=== PATIENT | female | born 1980 | race Caucasian/White ===

== ENCOUNTER 2019-12-16 20:08 | Emergency (ER) | payer SELFPAY ==
[2019-12-16 20:11] VITALS: BP 133/79; PULSE 90; RESP 19; TEMP 36.9; O2SAT 97; BMI 34.7
--- NOTE | 2019-12-16 20:19 | ED_ITS ---
HPI - General Adult General: Chief complaint: General Medical Stated complaint: flu like symptoms Time Seen by Provider: 12/16/19 20:19 Source: patient Mode of arrival: ambulatory Limitations: no limitations History of Present Illness: HPI narrative: Patient comes in today with complaints of flulike syndrome. Patient reports illness starting yesterday. Patient complains of headache. Patient appears mildly unwell. Patient appears in mild pain. Associated symptoms: Reports headache(s) and malaise Review of Systems General: Reports: 10 or more systems reviewed and unremarkable except in HPI and below Const: Reports: fever, chills and malaise Neuro: Reports: headache PFSH ED PFSH: Statuses (acute, chronic, etc) shown below reflect problem list status as previously entered and may not be historically accurate Social History Smoking and tobacco status: never smoked Physical Exam Const: COMMON NORMALS: no apparent distress and oriented x3 GENERAL APPEARANCE: cooperative HENMT: COMMON NORMALS: normocephalic, external ears normal, EAC's normal and TM's normal bilaterally HEAD & SCALP: normal to inspection and normocephalic FACE & SINUS: normal facial exam NOSE: no nasal discharge GENERAL EAR: hearing not grossly impaired EXTERNAL EAR: Yes external ears normal EXTERNAL AUDITORY CANAL: EAC's normal TYMPANIC MEMBRANE: TM's normal bilaterally MOUTH: oral and palatal mucosa normal THROAT: posterior oropharynx abnormal erythema Eye: COMMON NORMALS: PERRL and EOMs intact bilaterally PUPIL: Yes PERRL Neck/C-Spine: COMMON NORMALS: full ROM and no lymphadenopathy Lymph: LYMPHATIC: no lymphedema noted Chest: COMMONS NORMALS: inspection of chest normal and palpation of chest normal Resp: COMMON NORMALS: normal respiratory effort and clear to auscultation bilaterally AUSCULTATION: clear to auscultation bilaterally Cardio: COMMON NORMALS: regular rate and regular rhythm RATE: regular rate RHYTHM: regular rhythm GI: COMMON NORMALS: normal to inspection, nondistended, normoactive bowel sounds and non-tender : COMMON NORMALS: Yes no CVA tenderness BLADDER/KIDNEY EXAM: Yes no CVA tenderness Back/Pelvis: COMMON NORMALS: no CVA tenderness and thoracic and lumbar spine normal to inspection Extremity: COMMON NORMALS: normal to inspection GENERAL: No edema Neuro: COMMON NORMALS: oriented x3, moves all extremities and no focal motor deficits Psych: COMMON NORMALS: mental status grossly normal and cooperative Skin: COMMON NORMALS: no rashes or lesions noted GENERAL SKIN EXAM: no rashes or lesions noted Course Vital Signs: Vital signs: Vital Signs Temperature 98.5 F 12/16/19 20:11 Pulse Rate 76 12/16/19 21:03 Respiratory Rate 18 12/16/19 21:03 Blood Pressure 118/68 12/16/19 21:03 Pulse Oximetry 98 12/16/19 21:03 MDM - General Adult MDM Narrative: Medical decision making narrative: Patient comes in today with complaints of flulike symptoms. Patient reports illness started yesterday. Patient has been exposed to the flu through her job. Exam notes posterior pharynx is erythematous, bilateral tympanic membranes are clear. Respirations are even lungs are clear to auscultation. Differential diagnosis includes influenza, pneumonia, viral syndrome, upper respiratory infection. Flu test was positive for type B. Reviewed exam with patient recommended treatment with Tamiflu and off work for 3 to 4 days while she recovers. Patient reports understanding agreed to plan. Lab Data: Labs: Lab Results 12/16/19 Range/Units 20:23 Influenza Type A A g Negative (Negative) POC Influenza B Ag Positive H (Negative) Discharge Plan Discharge Patient Disposition: Home, Self-Care Clinical Impression: Influenza Condition: Stable Prescriptions: New oseltamivir 75 mg capsule 75 mg PO BID 5 Days Qty: 10 RF: 0 Discharge Orders: Discharge Order (Routine); Ordered 12/16/19 Ordered By: Rowdy Flannery Referrals: Lina West MD [Family Provider] - Preeti Crawford FNP [Primary Care Provider] - Discharge Diet: Usual diet Discharge Activity: Increase activity as tolerated Patient Instructions: Influenza (ED) Activity Restrictions/Additional Instructions: drink plenty of fluids Acetaminophen and ibuprofen for pain and fever Activity as tolerated Follow-up with primary care in one week as needed Return to ER for worsening or persistent symptoms Stand Alone Forms: Work/School Release Discharge Date/Time: 12/16/19 21:04 Coding Level of Care Code ED Underwriting Account Representative for [employer] Exam Problem Focused
[2019-12-16 20:52] LABS: Influenza A by IFA Negative (Negative); Influenza B by IFA Positive (Negative)
[2019-12-16 21:03] VITALS: BP 118/68; PULSE 76; RESP 18; O2SAT 98
== END 2019-12-16 21:04 | disposition home or self-care (01) ==
PROVIDERS: Emergency Medicine; Emergency Provider Nurse Practitioner Family; Family Provider Family Medicine; PCP Nurse Practitioner
DX: J11.1 Influenza due to unidentified influenza virus with other respiratory manifestations (principal)
CPT/HCPCS: 87804; 99281; 99282

== ENCOUNTER 2020-05-07 12:08 | Emergency (ER) | payer SELFPAY ==
[2020-05-07 12:38] VITALS: BMI 33.9
[2020-05-07 12:40] VITALS: BP 136/78; PULSE 98; RESP 16; TEMP 36.9; O2SAT 97
--- NOTE | 2020-05-07 12:44 | XRR_ITS ---
PROCEDURE INFORMATION: Exam: XR Chest, 2 Views Exam date and time: 05/07/2020 12:45 PM Age: 39 years old Clinical indication: Cough; Additional info: Rule out pneumonia cough TECHNIQUE: Imaging protocol: XR of the chest Views: 2 views. COMPARISON: CR Chest 1 [place] [id number] 04/27/2017 10:45 AM FINDINGS: Lungs: Unremarkable. No consolidation. Pleural space: Unremarkable. No pleural effusion. No pneumothorax. Heart/Mediastinum: Unremarkable. No cardiomegaly. Bones/joints: Unremarkable. XR/XR chest 2V* [id number] IMPRESSION: No acute findings.
[2020-05-07 15:04] LABS: Basophils % 0.4 %; Eosinophils # 0.3 10^3/uL (0.0-0.8); Eosinophils % 2.8 %; Hematocrit 44.3 % (37.0-47.0); Hemoglobin 14.1 g/dL (11.5-15.3); Lymphocytes # 2.5 10^3/uL (0.8-4.8); Lymphocytes % 27.4 %; Mean Corpuscular HGB Conc 31.8 g/dL (30.0-36.0); Mean Corpuscular Hemoglobin 27.3 pg (28.0-34.0); Mean Corpuscular Volume 85.9 fL (81-99); Mean Platelet Volume 9.7 fL (7.4-10.4); Monocytes # 1.1 10^3/uL (0.2-0.9); Monocytes % 12.2 %; Neutrophils # 5.2 10^3/uL (1.8-7.7); Neutrophils % 56.9 %; Nucleated Red Blood Cells % 0 %; Platelet Count 396 10^3/cmm (130-400); Red Blood Count 5.16 10^6/uL (4.1-5.3); Red Cell Distribution Width 12.6 % (12.1-15.1); White Blood Count 9.1 10^3/uL (4.0-10.0)
[2020-05-07 15:25] LABS: Alanine Aminotransferase 15 U/L (0-33); Albumin Level 4.7 g/dL (3.5-5.2); Alkaline Phosphatase 99 IU/L (35-105); Aspartate Amino Transferase 15 U/L (0-32); Blood Urea Nitrogen 7 mg/dL (6-20); Calcium 9.8 mg/dL (8.5-10.5); Carbon Dioxide 25 mmol/L (22-29); Chloride 102 mmol/L (98-107); Globulin 3.2 g/dL (1.3-4.6); Glomerular Filtration Rate 111.9 mL/min (90-130); Glucose 89 mg/dL (65-115); Osmolality Calculated 281 mOsm/kg (285-295); Sodium 138 mmol/L (136-145); Total Bilirubin 0.2 mg/dL (0.15-1.2); Total Protein 7.9 g/dL (6.6-8.7)
--- NOTE | 2020-05-07 15:49 | ED_ITS ---
HPI - General Adult General: Chief complaint: General Medical Stated complaint: cough, sob Time Seen by Provider: 05/07/20 15:45 History of Present Illness: HPI narrative: Patient is a 39-year-old female comes to the ED with wheezing and shortness of breath. Patient has a past medical history of asthma. Patient says symptoms started on when she went into a building that had some cinnamon, which she is allergic to. Patient says she started having trouble breathing and went home and used her albuterol inhaler and it helped a little bit. She feels like it is not getting much better and she still has a cough, wheezing and chest tightness. Associated symptoms: Reports dyspnea; Deny chest pain, headache(s), nausea, rash, palpitations or vomiting Review of Systems Const: Denies: fever(s), chills or fatigue Eyes: Denies: change in vision or eye discomfort ENMT: Denies: throat pain, odynophagia, nasal discharge or nasal congestion Card: Denies: chest pain, palpitations, edema, swelling of feet/ankles, dyspnea on exertion or orthopnea Resp: Reports: dyspnea, non-productive cough and wheezing; Denies: productive cough GI: Denies: abdominal pain, nausea, vomiting, diarrhea, constipation or hematochezia : Denies: flank pain, dysuria or hematuria Musc: Denies: neck pain, back pain or extremity swelling Skin/Breast: Denies: rash or new lesions Neuro: Denies: headache(s), numbness in extremities or weakness in extremities PFS ED PFSH: Social History Smoking and tobacco status: never smoked Physical Exam Const: COMMON NORMALS: no acute distress, patient oriented x3 and alert GENERAL APPEARANCE: cooperative and comfortable HENMT: COMMON NORMALS: normocephalic HEAD & SCALP: normocephalic MOUTH: Normal oral and palatal mucosa present THROAT: posterior oropharynx normal and uvula midline Neck/C-Spine: COMMON NORMALS: supple GENERAL: Yes normal visual inspection Resp: COMMON NORMALS: normal respiratory effort, No retractions and No use of accessory muscles EFFORT & INSPECTION: Yes able to speak in complete sentences, No respiratory distress, No labored and Yes Actively coughing AUSCULTATION: wheezes expiratory wheezes (Left lung throughout) Cardio: COMMON NORMALS: regular rate, regular rhythm, S1 normal heart sound present, S2 normal heart sound present, No gallops present (Cardio), No clicks present (Cardio), No murmurs present (Cardio) and Peripheral pulses 2+ throughout RATE: regular rate RHYTHM: regular rhythm HEART SOUNDS: S1 normal heart sound present and S2 normal heart sound present PERIPHERAL PULSES: Peripheral pulses 2+ throughout GI: COMMON NORMALS: Normal to inspection, nondistended, normoactive bowel sounds present, Soft to palpation, non-tender and no masses PALPATION: Yes Soft to palpation : COMMON NORMALS: Yes no CVA tenderness BLADDER/KIDNEY EXAM: Yes no CVA tenderness Back/Pelvis: COMMON NORMALS: no CVA tenderness Extremity: COMMON NORMALS: normal to inspection and no pedal edema Neuro: COMMON NORMALS: patient oriented x3 and moves all extremities SENSOR IUM/ORIENTATION: Yes alert Skin: COMMON NORMALS: no rashes or lesions noted GENERAL SKIN EXAM: no rashes or lesions noted and dry skin Course Reevaluation(s): Reevaluation #1: After dose of Solu-Medrol and DuoNeb breathing treatment patient says she was feeling a lot better and she had no more wheezing upon auscultation of lungs. Vital Signs: Vital signs: Vital Signs Temperature 97.8 F 05/07/20 17:26 Pulse Rate 93 05/07/20 17:26 Respiratory Rate 16 05/07/20 17:26 Blood Pressure 138/83 05/07/20 17:26 Pulse Oximetry 98 05/07/20 17:26 MDM - General Adult MDM Narrative: Medical decision making narrative: Patient is a 39-year-old female with a history of asthma who comes to the ED with shortness of breath and wheezing. Patient says she was exposed to cinnamon which is an allergy for her on and she has had wheezing and shortness of breath since then. She has been using her albuterol inhaler and has not improved. In the ED patient had wheezing in the left lung upon auscultation, no crackles heard. CBC and CMP were unremarkable. Chest x-ray showed no acute findings. Patient was given a dose of Solu-Medrol and DuoNeb treatment. After DuoNeb treatment patient said she was feeling a lot better and her lungs were clear to auscultation bilaterally and no more wheezing was heard. Patient was discharged with a Solu-Medrol and albuterol inhaler prescription. She was told to follow-up with her PCP in 7 to 10 days for reevaluation. Return to ED if worsening symptoms. Patient agreed with and understood plan. Lab Data: Attestation: I reviewed the patient's lab results. Labs: Lab Results 05/07/20 05/07/20 Range/Units 14:35 14:35 WBC 9.1 (4.0-10.0) 10^3/ uL RBC 5.16 (4.1-5.3) 10^6/u L Hgb 14.1 (11.5-15.3) g/dL Hct 44.3 (37.0-47.0) % MCV 85.9 (81-99) fL MCH 27.3 L (28.0-34.0) pg MCHC 31.8 (30.0-36.0) g/dL RDW 12.6 (12.1-15.1) % Plt Count 396 (130-400) 10^3/c mm MPV 9.7 (7.4-10.4) fL Neut % (Auto) 56.9 % Lymph % (Auto) 27.4 % [place] % (Auto) 12.2 % Eos % (Auto) 2.8 % Baso % (Auto) 0.4 % Neut # (Auto) 5.2 (1.8-7.7) 10^3/u L Lymph # (Auto) 2.5 (0.8-4.8) 10^3/u L [place] # (Auto) 1.1 H (0.2-0.9) 10^3/u L Eos # (Auto) 0.3 (0.0-0.8) 10^3/u L Baso # (Auto) 0.0 (0.0-0.1) 10^3/u L Nucleated RBC % (a uto) 0 % Nucleated RBCs # 0.0 /100WBC Sodium 138 (136-145) mmol/L Potassium 4.0 (3.5-5.1) mmol/L Chloride 102 (98-107) mmol/L Carbon Dioxide 25 (22-29) mmol/L Anion Gap 15.0 (5-19) BUN 7 (6-20) mg/dL Creatinine 0.6 (0.5-0.9) mg/dL GFR Calculation 111.9 (90-130) mL/min Glucose 89 (65-115) mg/dL Calculated Osmolal ity 281 L (285-295) mOsm/k g Calcium 9.8 (8.5-10.5) mg/dL Total Bilirubin 0.2 (0.15-1.2) mg/dL AST 15 (0-32) U/L ALT 15 (0-33) U/L Alkaline Phosphata se 99 (35-105) IU/L Total Protein 7.9 (6.6-8.7) g/dL Albumin 4.7 (3.5-5.2) g/dL Globulin 3.2 (1.3-4.6) g/dL Imaging Data^: CXR: Attestation: I personally reviewed and interpreted this imaging study as fo llows: My impression: No acute findings pending final radiology report. Discharge Plan Discharge Patient Disposition: Home, Self-Care Clinical Impression: Asthma attack Qualifiers: Asthma severity: mild Asthma persistence: intermittent Qualified Code(s): J45.21 - Mild intermittent asthma with (acute) exacerbation Condition: Stable Prescriptions: New Medrol (Chas) 4 mg tablets,dose pack See Rx Instructions .ROUTE .COMPLEX Qty: 21 RF: 0 albuterol sulfate 90 mcg/actuation aerosol powdr breath activated 2 inh INHALATION Q4H PRN (Reason: shortness of breath or wheezing) Qty: 1 RF: 0 No Action cetirizine 10 mg Tablet 10 mg PO DAILY RF: 0 Discharge Orders: Discharge Order (Routine); Ordered 05/07/20 Ordered By: Dyllan Churchill Referrals: Preeti Crawford FNP [Primary Care Provider] - Discharge Diet: Regular Discharge Activity: Resume usual activity Patient Instructions: Asthma Exacerbation - Adult Activity Restrictions/Additional Instructions: Follow-up with medical provider as directed in 7-10 days. Take medications as prescribed. Return to the ER or your medical provider if condition worsens. Please read and understand discharge instructions. If any questions, please ask. Discharge Date/Time: 05/07/20 17:27 Coding Level of Care Code ED Manager Of Human Resources for [employer] Exam Comprehensive
[2020-05-07 16:45] VITALS: PULSE 83; RESP 18; O2SAT 98
[2020-05-07] MEDS: ipratropium-albuterol 3 mL Neb INHALATION (16:50)
[2020-05-07 16:57] VITALS: PULSE 91
[2020-05-07 17:26] VITALS: BP 138/83; PULSE 93; RESP 16; TEMP 36.6; O2SAT 98
== END 2020-05-07 17:27 | disposition home or self-care (01) ==
PROVIDERS: Emergency Medicine; Emergency Provider Physician Assistant; PCP Nurse Practitioner
DX: J45.21 Mild intermittent asthma with (acute) exacerbation (principal)
CPT/HCPCS: 12345; 36415; 71046; 80053; 85025; 94640; 96372; 99282; 99283; J2930

== ENCOUNTER → 2020-11-24 10:42 | Outpatient (BNVA) | payer OTHER, SELFPAY | PROVIDERS: PCP Nurse Practitioner; Visit Provider Nurse Practitioner Family | DX: Z20.822 Contact with and (suspected) exposure to COVID-19 (principal); Z11.52 Encounter for screening for COVID-19 | CPT/HCPCS: 87426; 87635 ==

== ENCOUNTER → 2020-11-25 15:46 | Outpatient (BNVA) | payer OTHER, SELFPAY | PROVIDERS: PCP Nurse Practitioner; Visit Provider Nurse Practitioner Family | DX: J06.9 Acute upper respiratory infection, unspecified (principal) | CPT/HCPCS: 87400 ==

== ENCOUNTER → 2020-11-26 11:53 | Outpatient (BNVA) | payer OTHER, SELFPAY | PROVIDERS: PCP Nurse Practitioner; Visit Provider Nurse Practitioner Family | DX: J06.9 Acute upper respiratory infection, unspecified (principal); J98.8 Other specified respiratory disorders; B97.89 Other viral agents as the cause of diseases classified elsewhere; Z20.828 Contact with and (suspected) exposure to other viral communicable diseases | CPT/HCPCS: 87635 ==

== ENCOUNTER 2020-12-31 17:24 | Emergency (ER) | payer OTHER, SELFPAY ==
[2020-12-31 17:50] VITALS: BP 147/88; PULSE 88; RESP 18; TEMP 36.6; O2SAT 98; BMI 38.2
--- NOTE | 2020-12-31 18:05 | CTR_ITS ---
PROCEDURE INFORMATION: Exam: CT Lumbar Spine Without Contrast Exam date and time: 12/31/2020 6:45 PM Age: 40 years old Clinical indication: Injury or trauma; Blunt trauma (contusions or hematomas); Patient HX: C/O worsening lbp since fall on ice 10 days ago TECHNIQUE: Imaging protocol: Computed tomography images of the lumbar spine without contrast. Radiation optimization: All CT scans at this facility use at least one of these dose optimization techniques: automated exposure control; mA and/or kV adjustment per patient size (includes targeted exams where dose is matched to clinical indication); or iterative reconstruction. COMPARISON: [place] [id number] 03/01/2015 1:05 AM RADIATION DOSE METRICS: Total DLP (mGy-cm): 2638.7 FINDINGS: Vertebrae: No acute fracture. Normal alignment. L1-L2: No significant disc protrusion. No severe spinal canal stenosis. No significant neural foraminal narrowing. L2-L3: No significant disc protrusion. No spinal canal stenosis. No neural foraminal narrowing. L3-L4: No significant disc protrusion. No severe spinal canal stenosis. No significant neural foraminal narrowing. L4-L5: No significant disc protrusion. No severe spinal canal stenosis. No significant neural foraminal narrowing. L5-S1: No significant disc protrusion. No severe spinal canal stenosis. No significant neural foraminal narrowing. Gallbladder and bile ducts: Cholecystectomy. Reproductive: Partial visualization of intrauterine device. Soft tissues: Paraspinal soft tissues are unremarkable. CT/CT lumbar spine wo con* [id number] IMPRESSION: Unremarkable lumbar spine. No acute fracture. No change from comparison 03/01/2015. Radiation Dose CTDIVOL = (mGy): DLP = 2638.7 (mGy-cm)
[2020-12-31 19:48] VITALS: RESP 18
[2020-12-31] MEDS: oxyCODONE-APAP 5-325 mg Tablet 2 TAB PO (19:48)
[2020-12-31 20:59] VITALS: PULSE 75; RESP 16; O2SAT 97
--- NOTE | 2021-01-01 02:10 | W.ED.BACK ---
HPI - Back Pain/Injury General: Chief Complaint: Back Pain/Injury Stated Complaint: FALL, SEVERE LOWER BACK PAIN Time Seen by Provider: 12/31/20 18:45 History of Present Illness: HPI Narrative: 40-year-old female who fell several days ago on the ice. She states that she fell flat of her back. Her pain has been increasing since that time. She is taken ibuprofen and Tylenol as well as lidocaine patches at home without any improvement. She notes radicular pain down to her knee from the right side. No numbness or tingling. No loss of bowel or bladder function. MD elicited complaint: back pain and back injury Onset (ago): day(s) Timing: constant and progressively worsening Severity: severe Similar Symptoms Previously: No Quality: sharp, stabbing and spasming Location: lumbar spine and sacrum Radiation: right upper leg Exacerbating factors: movement Relieving factors: none Context: fall Associated symptoms: Reports difficulty walking and nausea; Deny abdominal pain, dysuria, fatigue, fecal incontinence, fever(s), hematuria, urinary frequency or urinary urgency Treatments prior to arrival: cold therapy, heat therapy, NSAIDS, acetaminophen and other medications Review of Systems Const: Denies: fever(s) or fatigue GI: Reports: nausea; Denies: abdominal pain or fecal incontinence : Denies: dysuria, urinary urgency or hematuria Neuro: Reports: difficulty walking [facility] ED PFSH: Social History (Updated 11/25/20 @ 15:29 by JAYRO Odonnell) Smoking and tobacco status: never smoked Alcohol intake: never Physical Exam Const: COMMON NORMALS: patient oriented x3, alert and well nourished Neck/C-Spine: COMMON NORMALS: no JVD Resp: COMMON NORMALS: normal respiratory effort, No use of accessory muscles and clear to auscultation bilaterally AUSCULTATION: clear to auscultation bilaterally Cardio: COMMON NORMALS: no JVD, regular rate, regular rhythm and No murmurs present (Cardio) RATE: regular rate RHYTHM: regular rhythm GI: COMMON NORMALS: Normal to inspection, nondistended, normoactive bowel sounds present, Soft to palpation and non-tender PALPATION: Yes Soft to palpation Back/Pelvis: OTHER: Exam of the lumbar spine reveals significant tenderness over the L5 region. There is pain on straight leg raise testing that radiates pain to the knee on the right, but not below. Pelvis appears stable. Strength testing is good. Neuro: COMMON NORMALS: patient oriented x3 SENSORIUM/ORIENTATION: Yes alert Course Vital Signs: Vital signs: Vital Signs Temperature 97.9 F 12/31/20 17:50 Pulse Rate 75 12/31/20 20:59 Respiratory Rate 16 12/31/20 20:59 Blood Pressure 147/88 12/31/20 17:50 Pulse Oximetry 97 12/31/20 20:59 MDM - Back Pain/Injury MDM Narrative: Medical decision making narrative: CT of the lumbosacral spine is normal. There is no asymmetry of the SI joint by CT. Discharge Plan Discharge Patient Disposition: Home Clinical Impression: Strain of lumbar region Qualifiers: Encounter type: initial encounter Qualified Code(s): S39.012A - Strain of muscle, fascia and tendon of lower back, initial encounter Condition: Stable Prescriptions: New Percocet 7.5-325 mg tablet 1 tab PO Q6H PRN (Reason: pain) Qty: 10 RF: 0 Medrol (Chas) 4 mg tablets,dose pack See Rx Instructions .ROUTE .COMPLEX Qty: 21 RF: 0 No Action hydroxyzine HCl 25 mg tablet 25 mg PO BID PRNRF: 0 albuterol sulfate 2.5 mg /3 mL (0.083 %) solution for nebulization 2.5 mg INHALATION Q4H PRN (Reason: shortness of breath or wheezing) Qty: 90 RF: 0 citalopram 10 mg tablet 10 mg PO DAILY RF: 0 prednisone 20 mg tablet 20 mg PO DAILY 5 Days Qty: 5 RF: 0 cetirizine 10 mg Tablet 10 mg PO DAILY RF: 0 albuterol sulfate 90 mcg/actuation aerosol powdr breath activated 2 inh INHALATION Q4H PRN (Reason: shortness of breath or wheezing) Qty: 1 RF: 0 Discharge Orders: Discharge ED (Routine); Ordered 12/31/20 Ordered By: Dick Bay Discharge Diet: Usual diet Discharge Activity: Limit activity as instructed Patient Instructions: Back Pain (ED), Opioid Safety Activity Restrictions/Additional Instructions: See your doctor early next week. You may require more outpatient services such as physical therapy. Medication as directed. Coding Level of Care Code ED [employer] Worker for Maria Ines Hopper
== END 2020-12-31 21:00 | disposition home or self-care (01) ==
PROVIDERS: Emergency Provider Emergency Medicine
DX: S39.012A Strain of muscle, fascia and tendon of lower back, initial encounter (principal); W00.9XXA Unspecified fall due to ice and snow, initial encounter
CPT/HCPCS: 72131; 99283

== ENCOUNTER → 2021-06-28 09:59 | Outpatient (BNVA) | payer OTHER, SELFPAY | PROVIDERS: Visit Provider Nurse Practitioner Women's Health | DX: Z30.431 Encounter for routine checking of intrauterine contraceptive device (principal) | CPT/HCPCS: 76830 ==

== ENCOUNTER → 2021-08-04 09:15 | Outpatient (BNVA) | payer OTHER, SELFPAY | PROVIDERS: Visit Provider Obstetrics & Gynecology | DX: D25.0 Submucous leiomyoma of uterus (principal); Z20.822 Contact with and (suspected) exposure to COVID-19 | CPT/HCPCS: 87635 ==

== ENCOUNTER 2021-08-09 12:34 | Observation (INO) | payer OTHER, SELFPAY ==
[2021-08-08 12:14] VITALS: BMI 37.1
--- NOTE | 2021-08-08 13:08 | ANES.PREANE2 ---
Pre-Anesthetic Assessment Pre-Anesthetic Assessment: Height/Weight: Height 1.68 m Weight 104.326 kg Preop Diagnosis: Uterine fibroid, chronic pelvic pain Proposed Procedure: Operation Date: 08/09/21 10:45 Proposed Procedures p Total Vaginal Hysterectomy 42626 D25.9(Not Applicable) - Apollo Enriquez MD Was Beta Lopez taken within 24 hours: N/A Was Clonidine taken within 24 hours: N/A Social: Social History: No alcohol and No tobacco Exam: Pre-Anes Outpt Exam: alert, oriented x 3 and clear to auscultation bilaterally Airway: Submandibular: WNL Cervical ROM: WNL MP: 1 Dentition: Full History/ROS: No significant complaints Pulmonary: Pulmonary: Asthma (no recent problems) CV/HEM: CV/HEM: None reported : : None reported Hepatic: Hepatic: None reported GI: GI: None reported Metabolic: Metabolic: None reported Musc/skel: Musc/skel: None reported Neuropsych: Neuropsych: None reported Anesthetic Plan: ASA status: 2 Anesthesia: General Risk of > 500 ml blood loss (7ml/kg in children): No PFSH Anesthesia PFSH: Medical History Asthma Diabetes HTN (hypertension), benign No pertinent past medical history neghx: thyroid,dvt/pe PCP: Modesta Whipple Surgical History Hx of cholecystectomy (~2010) Family History Grandfather Heart disease Paternal Diabetes Paternal Grandmother Heart disease Paternal Diabetes Paternal Family/Other Heart disease Paternal Uncle Colon cancer Maternal Great Grandmother--dx age unknown Paternal Uncle--dx age unknown Diabetes Paternal side in general Hypercholesteremia Paternal side in general Father Diabetes Hypertension Sister Diabetes Denies family history of Ovarian cancer Breast cancer Uterine cancer Thyroid disease Stroke Data Anesthesia Cardiac Studies: No Data to Display
[2021-08-08 13:09] LABS: Add Urine Microscopic? NO; Charge for UA Resulting for Rev
[2021-08-08 13:12] LABS: Basophils % 0.5 %; Eosinophils # 0.3 10^3/uL (0.0-0.8); Hemoglobin 13.1 g/dL (11.5-15.3); Lymphocytes # 2.8 10^3/uL (0.8-4.8); Lymphocytes % 32.2 %; Mean Corpuscular HGB Conc 32.8 g/dL (30.0-36.0); Mean Corpuscular Hemoglobin 27.7 pg (28.0-34.0); Mean Corpuscular Volume 84.6 fl (81-99); Monocytes # 0.7 10^3/uL (0.2-0.9); Monocytes % 7.9 %; Neutrophils # 4.86 10^3/uL (1.8-7.7); Neutrophils % 56.1 %; Nucleated Red Blood Cells % 0 %; Platelet Count 394 10^3/cmm (130-400); Red Blood Count 4.73 10^6/uL (4.1-5.3); Red Cell Distribution Width 12.7 % (12.1-15.1); White Blood Count 8.7 10^3/uL (4.0-10.0)
[2021-08-08 13:18] LABS: Bilirubin Urine Neg (Negative); Blood Urine Neg (Negative); Glucose Urine UA Norm (Normal); Ketones Urine Negative (Negative); Leukocyte Esterase Urine Negative (Negative); Nitrate Urine Negative (Negative); Protein Urine Neg (Negative); Specific Gravity, Urine 1.005 (1.005-1.030); Urine Appearance Clear (CLEAR); Urine Color Straw (Yellow); Urobilinogen Urine Norm (Negative); pH Urine 7 (5-7)
[2021-08-08 13:19] LABS: OR HCG Qualitative Urine Negative (Negative)
[2021-08-08 13:34] LABS: Alanine Aminotransferase 20 U/L (0-33); Albumin Level 4.3 g/dL (3.5-5.2); Alkaline Phosphatase 69 IU/L (35-105); Anion Gap 14.2 (5-19); Aspartate Amino Transferase 17 U/L (0-32); Blood Urea Nitrogen 9 mg/dL (6-20); Calcium 9.3 mg/dL (8.5-10.5); Carbon Dioxide 24 mmol/L (22-29); Chloride 99 mmol/L (98-107); Creatinine Clr Calc Pharmacy 152.1154; Globulin 2.4 g/dL (1.3-4.6); Glomerular Filtration Rate 110.7 mL/min (90-130); Glucose 146 mg/dL (65-115); Osmolality Calculated 279 mOsm/kg (285-295); Potassium 3.2 mmol/L (3.5-5.1); Sodium 134 mmol/L (136-145); Total Bilirubin 0.3 mg/dL (0.15-1.2); Total Protein 6.7 g/dL (6.6-8.7)
[2021-08-09] VITALS (17 sets, daily range): BP systolic 99–139; BP diastolic 61–84; PULSE 55–90; RESP 12–22; TEMP 36.3–37.1; O2SAT 96–100; BMI 37.4
[2021-08-09] MEDS: scopolamine 1.5 Patch 1 PATCH TRANSDERMA (09:32)
[2021-08-09] MEDS: sodium chloride 0.9% 500 ML IV (09:35)
[2021-08-09] MEDS: ondansetron 2 mg/ML SDV 2 mL 4 MG IVP ×2 (09:40→12:55)
[2021-08-09] MEDS: diphenhydrAMINE 50 mg/mL SDV 1mL 12.5 MG IVP (09:41)
--- NOTE | 2021-08-09 09:57 | ANES.PAUD2 ---
Pre-Anesthetic Update Pre-Anesthetic Assessment: Date of Surgery/Procedure: 08/09/21 Preop Diagnosis: Uterine fibroid, chronic pelvic pain Proposed Procedure: Operation Date: 08/09/21 10:20 Proposed Procedures p Total Vaginal Hysterectomy 57426 D25.9(Not Applicable) - Apollo Enriquez MD Any changes to Pre-Anesthetic Assessment?: No Last Intake: Intake Last Liquid Date 08/08/21 Last Liquid Time 19:00 Last Solid Date 08/08/21 Last Solid Time 22:00 Labs Last 48hrs: Laboratory Results - last 48 hr 08/08/21 08/08/21 08/08/21 12:25 12:25 12:25 WBC 8.7 RBC 4.73 Hgb 13.1 Hct 40.0 MCV 84.6 MCH 27.7 L MCHC 32.8 RDW 12.7 Plt Count 394 MPV 10.0 Neut % (Auto) 56.1 Lymph % (Auto) 32.2 [place] % (Auto) 7.9 Eos % (Auto) 3.0 Baso % (Auto) 0.5 Neut # (Auto) 4.86 Lymph # (Auto) 2.8 [place] # (Auto) 0.7 Eos # (Auto) 0.3 Baso # (Auto) 0.0 Nucleated RBC % (a uto) 0 Nucleated RBCs # 0.0 Sodium Potassium Chloride Carbon Dioxide Anion Gap BUN Creatinine GFR Calculation Glucose Calculated Osmolal ity Calcium Total Bilirubin AST ALT Alkaline Phosphata se Total Protein Albumin Globulin Urine Color Straw Urine Appearance Clear Urine pH 7 Ur Specific Gravit y 1.005 Urine Protein Neg Urine Glucose (UA) Norm Urine Ketones Negative Urine Blood Neg Urine Nitrate Negative Urine Bilirubin Neg Urine Urobilinogen Norm Ur Leukocyte Vandana ase Negative Urine HCG, Qual Negative Blood Type Rho(D) Type Antibody Screen 08/08/21 08/08/21 12:25 12:25 WBC RBC Hgb Hct MCV MCH MCHC RDW Plt Count MPV Neut % (Auto) Lymph % (Auto) [place] % (Auto) Eos % (Auto) Baso % (Auto) Neut # (Auto) Lymph # (Auto) [place] # (Auto) Eos # (Auto) Baso # (Auto) Nucleated RBC % (a uto) Nucleated RBCs # Sodium 134 L Potassium 3.2 L Chloride 99 Carbon Dioxide 24 Anion Gap 14.2 BUN 9 Creatinine 0.6 GFR Calculation 110.7 Glucose 146 H Calculated Osmolal ity 279 L Calcium 9.3 Total Bilirubin 0.3 AST 17 ALT 20 Alkaline Phosphata se 69 Total Protein 6.7 Albumin 4.3 Globulin 2.4 Urine Color Urine Appearance Urine pH Ur Specific Gravit y Urine Protein Urine Glucose (UA) Urine Ketones Urine Blood Urine Nitrate Urine Bilirubin Urine Urobilinogen Ur Leukocyte Vandana ase Urine HCG, Qual Blood Type O Positive Rho(D) Type Positive Antibody Screen Negative Vitals: Temperature 98.7 F 08/09/21 09:16 Temperature Source Temporal Artery S can 08/09/21 09:16 Pulse Rate 90 08/09/21 09:16 Respiratory Rate 18 08/09/21 09:16 Blood Pressure 139/84 08/09/21 09:16 Blood Pressure Karen n 102 08/09/21 09:16 Pulse Oximetry 96 08/09/21 09:16 Oxygen Delivery Me thod 08/09/21 09:16 Exam: Pre-Anes Outpt Exam: alert, oriented x 3, clear to auscultation bilaterally and regular rate & rhythm Cardiac Studies: No Data to Display
[2021-08-09] MEDS: sodium chloride 0.9% 1,000 ML 30 ML IV (10:04)
--- NOTE | 2021-08-09 10:13 | W.PM.OPSUD ---
Surgery/Procedure H&P Update DATE OF PROCEDURE: August 09, 2021 DATE H&P PERFORMED: 08/07/21 H&P UPDATE INFORMATION: I have reviewed H&P completed within last 30 days, I have examined patient prior to procedure and No changes to prior documentation PREOP DIAGNOSIS: Uterine fibroid, chronic pelvic pain PLANNED PROCEDURE: Operation Date: 08/09/21 10:20 Proposed Procedures p Total Vaginal Hysterectomy 26179 D25.9(Not Applicable) - Apollo Enriquez MD
[2021-08-09] MEDS: ceFOXitin 2,000 MG in sodium chloride 0.9% (plus) 50 ML 100 MG IV (10:18)
--- NOTE | 2021-08-09 12:29 | PM.OP ---
Operative Report Date of procedure: August 09, 2021 Pre-op Diagnosis: Uterine fibroid, chronic pelvic pain Post-op diagnosis: same Post-op Findings: irregular shape, large uterus, Procedure Done: Total vaginal hysterectomy Specimens removed/disposition: Uterus Pathology: Morcellated uterus Surgeon: Apollo Enriquez MD Anesthesia: General Estimated blood loss (mL): 500 IV fluids (mL): 1,000 Urine output (mL): 150 Complications: Uterus had to be morcellated, Condition: stable Disposition: PACU Procedure: After informed consent and risks, benefits, indications and alternatives reviewed with the patient was taken to the operating room. The patient was placed in dorsal lithotomy position prepped, and draped in the usual sterile fashion. The pre-procedure timeout verifying the correct patient, procedure, site and side, could not requirements was performed and acknowledge by the OR team. A Moss catheter was placed. A Bookwalter vaginal retractor was placed into the vagina in usual manner visualize the cervix. Cervix was grasped with a single tooth tenaculum and circumferentially infiltrated with 2% lidocaine with epinephrine. Then cervix was circumferentially incised with bovie and the bladder was dissected off the pubovesical cervical fascia anteriorly with a sponge stick and Metzenbaum scissors. The anterior peritoneal reflection was identified and the anterior cul-de-sac was entered sharply with Metzenbaum scissors. The same procedure was performed posteriorly and a posterior colpotomy was made through the posterior cul-de-sac space without difficulty and the posterior blade of the Bookwalter vaginal retractor was advanced posteriorly into the cul-de-sac. At this time, the left and right uterosacral ligaments were isolated and ligated with 0 Vicryl. The Enseal device was placed over the uterosacral ligaments on either side and was then used in a serial fashion up through the cardinal ligaments bilaterally cross-clamped, cut, and sealed with the Enseal device. Finally, the uterine arteries were cross-clamped, cut, sealed and ligated with the Enseal device. Hemostasis was assured. The broad ligaments were then serially clamped, sealed and cut with the Enseal device on both sides. The uterus was so enlarged that we will not think to the vaginal canal and he had to be manually morcellated. Once all the large fibroid had been excised with morcellation. Then both cornua were clamped, sealed and cut with the Enseal device. Excellent hemostasis was visualized. Then the pedicles were then suture ligated with excellent hemostasis. The uterus was submitted for pathologic evaluation. No other abnormalities were noted in the pelvic cavity. The peritoneum was then closed in a pursestring fashion with 0 Vicryl suture. The vaginal cuff angles were closed with [id number] #0 Vicryl suture on both sides and transfixed with the ipsilateral cardinal and uterosacral ligaments. The remainder of the vaginal cuff was closed with #0 Vicryl in a running locked fashion. At this time, instruments were removed from the vagina at hemostasis assured. Moss catheter was noted yielding clear ant urine. The patient was taken out of dorsal lithotomy position and awakened from the general anesthesia. The patient tolerated the procedure well and was taken to the PACU recovery room in a stable condition. Sponge, lap, needle and instruments counts were correct x3.
[2021-08-09] MEDS: fentaNYL 50 mcg/mL INJ 2mL IVP ×2 (12:55→13:00)
[2021-08-09] MEDS: HYDROcodone-acetaminophen 5-325 mg Tablet PO (14:20)
[2021-08-09] MEDS: ketorolac 30 mg/mL INJ IVP ×2 (14:21→21:36)
[2021-08-09] MEDS: dextrose 5%-lactated ringers 1,000 ML 125 ML IV ×2 (14:21→23:59)
--- NOTE | 2021-08-09 15:19 | ANE.PACU2 ---
Inpatient post-anesthesia follow up: Airway intact: Yes Vital signs: Temperature 97.9 F Pulse Rate 76 Respiratory Rate 17 Blood Pressure 120/76 Pulse Oximetry 99 Oxygen Delivery Me thod Room Air Oxygen Flow Rate 8 Fraction of Inspir ed Oxygen Hydration adequate: Yes Nausea and vomiting: No Pain level: 3 Mental status: Baseline
[2021-08-09] MEDS: docusate sodium 100 mg Capsule PO (18:03)
--- NOTE | 2021-08-09 21:12 | PC.NURSE ---
Patient ambulated 325'.
[2021-08-10] MEDS: acetaminophen 325 mg Tablet 650 MG PO ×2 (00:18→06:18)
[2021-08-10] MEDS: hyDROXYzine 25 mg Capsule PO (00:19)
[2021-08-10] MEDS: HYDROcodone-acetaminophen 5-325 mg Tablet PO ×2 (00:19→06:18)
[2021-08-10 00:28] VITALS: BP 115/69; PULSE 89; RESP 18; TEMP 37.1; O2SAT 95
[2021-08-10] MEDS: ketorolac 30 mg/mL INJ IVP ×2 (02:30→08:17)
[2021-08-10 04:00] VITALS: BP 99/55; PULSE 64; RESP 18; TEMP 37.1; O2SAT 96
[2021-08-10] MEDS: dextrose 5%-lactated ringers 1,000 ML 125 ML IV (06:20)
[2021-08-10 07:27] LABS: Hematocrit 32.5 % (37.0-47.0); Hemoglobin 10.4 g/dL (11.5-15.3); Mean Corpuscular Hemoglobin 27.8 pg (28.0-34.0); Mean Corpuscular Volume 86.9 fl (81-99); Mean Platelet Volume 9.8 fL (7.4-10.4); Platelet Count 300 10^3/cmm (130-400); Red Blood Count 3.74 10^6/uL (4.1-5.3); Red Cell Distribution Width 12.8 % (12.1-15.1); White Blood Count 12.5 10^3/uL (4.0-10.0)
[2021-08-10 07:48] VITALS: BP 99/64; PULSE 69; RESP 18; TEMP 36.9; O2SAT 95
--- NOTE | 2021-08-10 08:00 | P.DS_ITS ---
Discharge Providers CAT SCANNER OPERATOR Date of Admission: 08/09/21 12:34 Date of Discharge: 08/10/21 Attending Provider at Admission: Apollo Enriquez MD Attending Provider at Discharge: Apollo Enriquez MD Primary Care Provider: SVETA Simons Diagnoses at Discharge Discharge Diagnosis (1) Status post vaginal hysterectomy: Status: Acute (2) Postoperative anemia due to acute blood loss: Status: Acute Reason for Visit Reason for Visit: total vaginal hystrecetomy Hospital Course Hospital Course Mrs. Cartwright 41-year-old female diagnosed with a large fibroid uterus and chronic pelvic pain. She was admitted for planned total vaginal hysterectomy. The total vaginal hysterectomy was performed complicated by uterine size have to be morcellated and subsequently the patient bleeding more than expected. However postop observation has been uneventful. She is post TVH postoperative day 1 afebrile and hemodynamically stable. Tolerating diet well. Ambulating without difficulty. Pain under control. Physical Exam Narrative: EXAM NARRATIVE: GA: Alert and oriented ?3. HEENT: WNL. Heart: Regular rate and rhythm. Lungs: Clear to auscultation bilaterally. Abdomen: Bowel sounds present, nontender. FAGOT MAKER: No bleeding. Extremities: No edema, no cyanosis, no calves pain. Urinary Catheter Management^: Moss: Cath Placed During This Visit: yes Urinary Catheter Date of Insertion: 08/09/21 Urinary Catheter Time of Insertion: 10:58 Discharge Data Data Completed and Pending: Pending at discharge Category Date Time Status Pathology: Surgic al [PTH] Routine Pth 08/09/21 12:33 Received Labs from last 24 hours 08/10/21 07:17 WBC 12.5 H RBC 3.74 L Hgb 10.4 L Hct 32.5 L MCV 86.9 MCH 27.8 L MCHC 32.0 RDW 12.8 Plt Count 300 MPV 9.8 Vitals: Last Vital Signs Temp 98.4 F 08/10/21 07:48 Pulse 69 08/10/21 07:48 Resp 18 08/10/21 07:48 BP 99/64 08/10/21 07:48 Pulse Ox 95 08/10/21 07:48 Discharge Plan Discharge Patient Disposition: Home Condition: Stable Prescriptions: New acetaminophen 325 mg capsule 325 mg PO Q4H PRN (Reason: fever or postoperative pain) Qty: 60 RF: 0 ibuprofen 800 mg tablet 800 mg PO TID PRN (Reason: pain) Qty: 60 RF: 0 hydrocodone-acetaminophen 5-325 mg tablet 1 tab PO Q4H PRN (Reason: pain) Qty: 30 RF: 0 Colace 100 mg capsule 100 mg PO BID Qty: 60 RF: 0 Iron (ferrous sulfate) 325 mg (65 mg iron) tablet 325 mg PO BID Qty: 60 RF: 0 Continued hydroxyzine HCl 25 mg tablet 25 mg PO BID PRN (Reason: Pain) RF: 0 albuterol sulfate 2.5 mg /3 mL (0.083 %) solution for nebulization 2.5 mg INHALATION Q4H PRN (Reason: shortness of breath or wheezing) Qty: 90 RF: 0 acetaminophen [Tylenol] 325 mg capsule 325 mg PO QID PRN (Reason: Pain) RF: 0 Mirena 20 mcg/24 hours (6 yrs) 52 mg intrauterine device intrauterine RF: 0 ibuprofen 800 mg tablet 800 mg PO TID PRN (Reason: pain) Qty: 60 RF: 0 epinephrine [EpiPen] 0.3 mg/0.3 mL auto-injector 0.3 mg IM ONCE PRN (Reason: Shortness Of Breath) RF: 0 albuterol sulfate 90 mcg/actuation aerosol powdr breath activated 2 inh INHALATION Q4H PRN (Reason: shortness of breath or wheezing) Qty: 1 RF: 0 Discharge Orders: Discharge Order (Routine); Ordered 08/10/21 Ordered By: Apollo Enriquez Discharge Diet: Regular Discharge Activity: Increase activity as tolerated Patient Instructions: Vaginal Hysterectomy (DC), Vaginal Hysterectomy (GEN), Opioid Safety Activity Restrictions/Additional Instructions: 1. Please call [facility] on next working day to make your post-operative appointment in 2 weeks. 2. Please stay home until you come back to the clinic on first post-operative check up. 3. Please follow instructions on your medications CAREFULLY. 4. If you have abdominal incision, do not cover it unless dressing is necessary because of drainage. OK to shower, but avoid bath. Leave steri-strips until they fall off. If they are still on one week after surgery, you may remove th em. 5. If you had vaginal surgery or vaginal repair, Dr. Enriquez may instruct you to take SITZ bath. 6. Yellow, blood tinged odorous vaginal discharge is usually normal after hysterectomy or vaginal surgeries. 7. No sexual intercourse, tampons, or douches until you are completely released from the post-operative care. 8. Avoid constipation by eating right and maybe using some Metamucil or Milk of Magnesia. 9. All prescription refills are given during the working hours. Please do no wait till it runs out. Call the clinic at [phone] before your medication runs out. The clinic will get in touch with your doctor to prescribe medications if necessary. 10. Please remain within 40 mile radius from our hospital because emergencies do happen now and then during the post-operative period. 11. If you have stairs at home, take one step at a time slowly and minimize the number of trips. It helps to stay in one floor for the next few days. No lifting except what you can lift by one hand until you are released from the post-operative care. 12. Driving is discouraged until you are well healed. It may be 3-4 weeks before you feel strong enough to drive. You should be able to turn and look through the rear window without pain and you should be able to push the brake pedal very hard without pain before you drive. No fast rules, but SAFETY should be your primary concern. DO NOT drive if you are on sedating medications such as narcotics. 13. Call the clinic (during working hours) to make urgent appointment or go to the Emergency room, if any of the following occurs: i. Vaginal bleeding becomes heavy, more than a period. ii. Incision becomes red and sore, or drains pus. iii. Your temperature is over 100.4 or you have chill. iv. IV site becomes red and swollen (a little ``knot?? is usually OK) v. Persistent nausea and vomiting vi. Persistent constipation or diarrhea vii. Rash or allergic reaction to medications. Discharge Attestations CAT SCANNER OPERATOR Time Spent in Discharge Care*: less than 30 min Coding Level of Care Code Acute Termite Helper for Maria Ines Hopper Diagnoses Status post vaginal hysterectomy Z90.710 Postoperative anemia due to acute blood loss D62
[2021-08-10] MEDS: docusate sodium 100 mg Capsule PO (08:17)
--- NOTE | 2021-08-10 08:25 | PC.NURSE ---
Pad Sanitary napkin changed this morning to see if any bleeding or discharge today.
--- NOTE | 2021-08-10 11:02 | PC.CHAP ---
Pastoral Care Encounter/Spiritual Assessment Type of Contact [] Declined rn psych visit [] Patient/Family/Request visit [] Outpatient visit [] Follow-up visit [] Physician referral [] Code/Alert [x] Routine visit [] Staff referral [] Actively dying [] Patient sleeping [] Family support [] [] Out of room [] Palliative care [] [x] Receiving care in room [] Pre-surgical visit [] Trauma [] Long length of stay [] ICU visit [] Other: Relational/Emotional Strength [x] Patient feels connected with others/family/visitors/staff [] Distress [] Loneliness/isolation [] Abandonment Spirituality of Patient [x] Person of Roberta [] Attends Pentecostalism of their Roberta [] Believes in Prayer [] Reads Bible or Yazdanism materials [] There are Spiritual issues to be addressed Fireworks Assembly Supervisor Interventions [x] Prayer [x] Active listening [x] Non-anxious presence [x] Spiritual/emotional support [] Crisis/trauma care [x] Spiritual counseling [] Bereavement support [] Provided bereavement packet [] Provided Bible/devotional materials [] Provided toy/stuffed animal, coloring book to patient or family member [] Provided Communion [] Anointing/Lee [] Salvation [x] Completed spiritual assessment [] Other: Impact on Illness or Injury [] Angry [] Fearful [] Anxious [] Often cries [] Exhaustion [] Unable to work [] Unable to attend zoroastrian [] Unable to walk/stand [] Unable to read [] Unable to drive [] Unable to eat/drink [] Unable to sleep [] Unable to be with family [] Patient intubated [] Other: Summary had hytrecetomy in son pain will has some recovery time has a good attitude and is going home Time spent with patient 10 mins
[2021-08-10 11:03] VITALS: BP 99/64; PULSE 69; RESP 18; TEMP 36.9; O2SAT 95
--- NOTE | 2021-08-11 08:44 | PC.SOCIAL ---
discharge follow up call made, spoke with patient. patient reports she is feeling ok is very sore. patient picked up all new medications from [facility]. patient is taking tylenol and motrin as needed. hasn't had to take a lot of hydrocodone, she is just taking for break through pain. pt is aware of follow up appointment with Dr. Gutierrez 08-25. discussed with patient if she had a temp over 100.4, increased pain, vomiting, or foul discharge to call dr. gutierrez's office or report to the ED. patient denies any questions or concerns.
== END 2021-08-10 10:45 | disposition home or self-care (01) ==
LOC: MEDSURG 12:35
PROVIDERS: Admitting Provider Obstetrics & Gynecology; PCP Registered Nurse; Visit Provider Obstetrics & Gynecology
PROC: (CPT 58290; principal; 2021-08-09 10:10)
DX: D25.9 Leiomyoma of uterus, unspecified (principal); R10.2 Pelvic and perineal pain; G89.29 Other chronic pain; E11.9 Type 2 diabetes mellitus without complications; I10 Essential (primary) hypertension; Z82.49 Family history of ischemic heart disease and other diseases of the circulatory system; Z83.3 Family history of diabetes mellitus
CPT/HCPCS: 58290; 36415; 80053; 81003; 84703; 85025; 85027; 86850; 86900; 88307; 96365; G0378; J0694; J1100; J1200; J1885; J2405; J2704; J2710; J3010; J3490; J7030; J7040; Q9968

== ENCOUNTER 2021-08-13 18:41 | Inpatient (IN) | payer OTHER, SELFPAY ==
[2021-08-13] VITALS (8 sets, daily range): BP systolic 136–176; BP diastolic 79–105; PULSE 78–84; RESP 16–20; TEMP 35.8–36.9; O2SAT 97–98
--- NOTE | 2021-08-13 19:08 | W.ED.ABDPA2 ---
HPI - Abdominal Pain General: Chief Complaint: Abdominal Pain Stated Complaint: donna B/P post op, N/V Time Seen by Provider: 08/13/21 19:03 Source: patient Mode of arrival: ambulatory Limitations: no limitations History of Present Illness: HPI narrative: 41-year-old female states that she had hysterectomy vaginally on Saturday and states she has had pain since then with it increasing over the last 2 days. States pain is very sharp in nature in her lower abdomen. She rates it an 8 out of 10 currently. States her hydrocodone helps but is not resolving the pain. She had some nausea with the pain. Associated Symptoms: Denies chills, dysuria and fever(s) Review of Systems Const: Denies: fever(s), chills, body aches or change in appetite Eyes: Denies: blurry vision or eye discomfort ENMT: Denies: throat pain or dental pain Card: Denies: chest pain Resp: Denies: dyspnea GI: Reports: abdominal pain : Denies: dysuria Musc: Denies: neck pain or back pain Skin/Breast: Denies: rash Neuro: Denies: headache(s) Psych: Denies: depression Nick/Lymph: Denies: easy bruising All/Imm: Denies: urticaria PFSH ED PFSH: Medical History Asthma Diabetes HTN (hypertension), benign No pertinent past medical history neghx: thyroid,dvt/pe PCP: Modesta Whipple Surgical History Hx of cholecystectomy (~2010) Family History Grandfather Heart disease Paternal Diabetes Paternal Grandmother Heart disease Paternal Diabetes Paternal Family/Other Heart disease Paternal Uncle Colon cancer Maternal Great Grandmother--dx age unknown Paternal Uncle--dx age unknown Diabetes Paternal side in general Hypercholesteremia Paternal side in general Father Diabetes Hypertension Sister Diabetes Denies family history of Ovarian cancer Breast cancer Uterine cancer Thyroid disease Stroke Physical Exam Const: COMMON NORMALS: no acute distress, patient oriented x3 and healthy appearing HENMT: COMMON NORMALS: normocephalic and atraumatic HEAD & SCALP: normocephalic and atraumatic Eye: COMMON NORMALS: Equal, round and reactive pupils present and EOMs intact bilaterally PUPIL: Yes Equal, round and reactive pupils present Neck/C-Spine: COMMON NORMALS: full ROM and supple Chest: COMMONS NORMALS: normal inspection of the chest and normal palpation of entire chest wall Resp: COMMON NORMALS: normal respiratory effort, No retractions, No use of accessory muscles and clear to auscultation bilaterally AUSCULTATION: clear to auscultation bilaterally Cardio: COMMON NORMALS: regular rate, regular rhythm and No murmurs present (Cardio) RATE: regular rate RHYTHM: regular rhythm GI: COMMON NORMALS: Normal to inspection, nondistended, normoactive bowel sounds present, Soft to palpation, non-tender and no masses PALPATION: Yes Soft to palpation Extremity: COMMON NORMALS: normal to inspection and full ROM Neuro: COMMON NORMALS: patient oriented x3, moves all extremities and no focal motor deficits Psych: COMMON NORMALS: mental status grossly normal, Normal thought process present and cooperative THOUGHT PROCESS: Normal thought process present Skin: COMMON NORMALS: no rashes or lesions noted and no wounds GENERAL SKIN EXAM: no rashes or lesions noted Course Vital Signs: Vital signs: Vital Signs Temperature 96.5 F L 08/13/21 18:56 Pulse Rate 79 08/13/21 18:56 Respiratory Rate 20 H 08/13/21 22:09 Blood Pressure 176/105 08/13/21 18:56 Pulse Oximetry 98 08/13/21 20:02 MDM - Abdominal Pain MDM Narrative: Medical decision making narrative: Patient presents here with abdominal pain after been given multiple dose of IV pain medicines due to the pain. CT scan showed a possible postoperative infection or a fistula. Her white count here is minimally elevated she is afebrile. I spoke to OB on-call will give IV antibiotics and admit. Lab Data: Labs: Lab Results 08/13/21 08/13/21 08/13/21 19:10 19:20 19:20 WBC 11.1 10^3/uL H 10 ^3/uL (4.0-10.0) RBC 4.33 10^6/uL 10^6 /uL (4.1-5.3) Hgb 12.1 g/dL g/dL (11.5-15.3) Hct 36.8 % L % (37.0-47.0) MCV 85.0 fl fl (81-99) MCH 27.9 pg L pg (28.0-34.0) MCHC 32.9 g/dL g/dL (30.0-36.0) RDW 12.7 % % (12.1-15.1) Plt Count 395 10^3/cmm 10^3 /cmm (130-400) MPV 10.1 fL fL (7.4-10.4) Neut % (Auto) 57.9 % % Lymph % (Auto) 29.8 % % Bosque % (Auto) 9.5 % % Eos % (Auto) 1.9 % % Baso % (Auto) 0.4 % % Neut # (Auto) 6.42 10^3/uL 10^3 /uL (1.8-7.7) Lymph # (Auto) 3.3 10^3/uL 10^3/ uL (0.8-4.8) Bosque # (Auto) 1.1 10^3/uL H 10^ 3/uL (0.2-0.9) Eos # (Auto) 0.2 10^3/uL 10^3/ uL (0.0-0.8) Baso # (Auto) 0.0 10^3/uL 10^3/ uL (0.0-0.1) Nucleated RBC % (a uto) 0 % % Nucleated RBCs # 0.0 /100WBC /100W BC Sodium 139 mmol/L mmol/L (136-145) Potassium 3.6 mmol/L mmol/L (3.5-5.1) Chloride 102 mmol/L mmol/L (98-107) Carbon Dioxide 25 mmol/L mmol/L (22-29) Anion Gap 15.6 (5-19) BUN 7 mg/dL mg/dL (6-20) Creatinine 0.6 mg/dL mg/dL (0.5-0.9) GFR Calculation 110.7 mL/min mL/m in (90-130) Glucose 89 mg/dL mg/dL (65-115) Calculated Osmolal ity 285 mOsm/kg mOsm/ kg (285-295) Lactic Acid Calcium 9.4 mg/dL mg/dL (8.5-10.5) Total Bilirubin 0.3 mg/dL mg/dL (0.15-1.2) AST 12 U/L U/L (0-32) ALT 16 U/L U/L (0-33) Alkaline Phosphata se 70 IU/L IU/L (35-105) Total Protein 6.9 g/dL g/dL (6.6-8.7) Albumin 4.1 g/dL g/dL (3.5-5.2) Globulin 2.8 g/dL g/dL (1.3-4.6) Lipase 11 U/L L U/L (13-60) Urine Color Yellow (Yellow) Urine Appearance Clear (CLEAR) Urine pH 7 (5-7) Ur Specific Gravit y 1.005 (1.005-1.030) Urine Protein Neg (Negative) Urine Glucose (UA) Norm (Normal) Urine Ketones Negative (Negative) Urine Blood 2+ H (Negative) Urine Nitrate Negative (Negative) Urine Bilirubin Neg (Negative) Urine Urobilinogen Norm mg/dL mg/dL (Negative) Ur Leukocyte Vandana ase Negative (Negative) Urine RBC 0-4 /hpf H /hpf (0-2) Urine WBC 0-4 /hpf H /hpf (0-5) Ur Squamous Epith Cells 0-4 /hpf H /hpf (0-5) Amorphous Sediment Not Reportable Urine Bacteria Trace /hpf /hpf (NONE) 08/13/21 21:45 WBC RBC Hgb Hct MCV MCH MCHC RDW Plt Count MPV Neut % (Auto) Lymph % (Auto) Bosque % (Auto) Eos % (Auto) Baso % (Auto) Neut # (Auto) Lymph # (Auto) Bosque # (Auto) Eos # (Auto) Baso # (Auto) Nucleated RBC % (a uto) Nucleated RBCs # Sodium Potassium Chloride Carbon Dioxide Anion Gap BUN Creatinine GFR Calculation Glucose Calculated Osmolal ity Lactic Acid 1.0 mmol/L mmol/L (0.5-2.2) Calcium Total Bilirubin AST ALT Alkaline Phosphata se Total Protein Albumin Globulin Lipase Urine Color Urine Appearance Urine pH Ur Specific Gravit y Urine Protein Urine Glucose (UA) Urine Ketones Urine Blood Urine Nitrate Urine Bilirubin Urine Urobilinogen Ur Leukocyte Vandana ase Urine RBC Urine WBC Ur Squamous Epith Cells Amorphous Sediment Urine Bacteria Imaging Data ^: CT Abd/Pel: Attestation: I personally reviewed and interpreted this imaging study as follows: Radiologist's impression: [address] [id number] [address] Scan Report Signed Patient: Keira Cartwright Unit #: [id number] : 1980 Age/Sex: 41 / F ADM Date: 08/13/21 Loc: ER Room/Bed: Attending Dr: Ordering Provider/Ordering MD: Sangeetha Garcia MD Date of Service: 08/13/21 Procedure(s): CT abdomen pelvis w con* [id number] Accession Number(s): [id number] Report Number: [id number] PROCEDURE INFORMATION: Exam: CT Abdomen And Pelvis With Contrast Exam date and time: 08/13/2021 7:07 PM Age: 41 years old Clinical indication: Abdominal pain; Localized; Prior surgery; Surgery date: 3-7 days post-operative; Patient HX: C/O worsening lower abd/pelvic pain 4 days S/P vag hyst; Additional info: Abd pain TECHNIQUE: Imaging protocol: Computed tomography of the abdomen and pelvis with contrast. Radiation optimization: All CT scans at this facility use at least one of these dose optimization techniques: automated exposure control; mA and/or kV adjustment per patient size (includes targeted exams where dose is matched to clinical indication); or iterative reconstruction. Contrast material: OMNI 300; Contrast volume: 95 ml; Contrast route: INTRAVENOUS (IV); COMPARISON: US transvaginal [id number] 06/28/2021 10:01 AM RADIATION DOSE METRICS: Total DLP (mGy-cm): 1713.19 FINDINGS: Heart: The heart is enlarged. Liver: Several hypodensities are noted in the liver and are too small to characterize. Gallbladder and bile ducts: There has been a cholecystectomy. There is no common bile duct dilation. Pancreas: The pancreas is normal. Spleen: Normal. No splenomegaly. Adrenal glands: Normal. No mass. Kidneys and ureters: There is no evidence of hydronephrosis. There is no evidence of renal calcifications. Stomach and bowel: There is an abnormal 4.3 x 4.4 by 4.0 cm at the top of the vaginal cuff containing air and what appears to be stool concerning for developing abscess and possibly fistulous communication with the adjacent sigmoid colon. On sagittal image 47, the sigmoid colon is lying immediately contiguous with this abnormality and there is a suggestion of a small tract or possible fistula between the bowel and the vaginal cuff. No diverticulitis. There is mild wall thickening of the colon immediately adjacent to the abnormal vaginal cuff. Appendix: A normal appendix is identified. A normal appendix is identified. Intraperitoneal space: No fluid collection or drainable abscess. Vasculature: Unremarkable.No abdominal aortic aneurysm. Lymph nodes: Unremarkable.No enlarged lymph nodes. Urinary bladder: There is nonspecific bladder wall thickening. This may be related to incomplete distention. Reproductive: There has been a hysterectomy. There are marked inflammatory changes in the pelvis with induration of the fat adjacent to the vaginal cuff. Bones/joints: Unremarkable. No acute fracture. Soft tissues: There is a fat-containing umbilical hernia. CT/CT abdomen pelvis w con* [id number] IMPRESSION: Abnormal vaginal cuff concerning for developing abscess and fistulous communication with the colon. There is a feces like appearance within the vaginal cuff and abundant induration of the adjacent fat. No drainable abscess. Radiation Dose CTDIVOL = (mGy): DLP = 1713.19 (mGy-cm) Dictated By: Bernice Fischer Signed By: Bernice Fischer Signed Date/Time: 08/13/212140 DD/ 06 Discharge Plan Discharge Patient Disposition: Admitted As Inpatient Clinical Impression: Postoperative pain, Status post vaginal hysterectomy, Abscess, intra-abdominal, postoperative Condition: Stable Coding Level of Care Code ED Product Development Chemist for Chg Fwd Exam Comprehensive
[2021-08-13 19:26] LABS: Add Urine Microscopic? YES; Bilirubin Urine Neg (Negative); Blood Urine 2+ (Negative); Glucose Urine UA Norm (Normal); Ketones Urine Negative (Negative); Leukocyte Esterase Urine Negative (Negative); Nitrate Urine Negative (Negative); Protein Urine Neg (Negative); Specific Gravity, Urine 1.005 (1.005-1.030); Urine Appearance Clear (CLEAR); Urine Color Yellow (Yellow); Urobilinogen Urine Norm (Negative); pH Urine 7 (5-7)
[2021-08-13 19:27] LABS: Add Urine Culture? No; Bacteria Urine TRACE /hpf; RBC Urine 0-4 /hpf (0-2); Squamous Epithelial Cell Urine 0-4 /hpf (0-5); WBC Urine 0-4 /hpf (0-5)
[2021-08-13] MEDS: ondansetron 2 mg/ML SDV 2 mL 4 MG IVP ×2 (19:38→20:02)
[2021-08-13] MEDS: sodium chloride 0.9% 1,000 ML 999 ML IV (19:38)
[2021-08-13] MEDS: morphine 4 mg/mL SDV 1 mL IVP (19:38)
[2021-08-13] MEDS: iohexol 300 mg/mL 100 mL Btl IV (19:40)
[2021-08-13 19:57] LABS: Basophils % 0.4 %; Eosinophils # 0.2 10^3/uL (0.0-0.8); Eosinophils % 1.9 %; Hematocrit 36.8 % (37.0-47.0); Hemoglobin 12.1 g/dL (11.5-15.3); Lymphocytes # 3.3 10^3/uL (0.8-4.8); Lymphocytes % 29.8 %; Mean Corpuscular HGB Conc 32.9 g/dL (30.0-36.0); Mean Corpuscular Hemoglobin 27.9 pg (28.0-34.0); Mean Platelet Volume 10.1 fL (7.4-10.4); Monocytes # 1.1 10^3/uL (0.2-0.9); Monocytes % 9.5 %; Neutrophils # 6.42 10^3/uL (1.8-7.7); Neutrophils % 57.9 %; Nucleated Red Blood Cells % 0 %; Platelet Count 395 10^3/cmm (130-400); Red Blood Count 4.33 10^6/uL (4.1-5.3); Red Cell Distribution Width 12.7 % (12.1-15.1); White Blood Count 11.1 10^3/uL (4.0-10.0)
[2021-08-13] MEDS: HYDROmorphone 1 mg/mL INJ 1 mL IVP ×3 (20:02→23:42)
[2021-08-13 20:35] LABS: Alanine Aminotransferase 16 U/L (0-33); Albumin Level 4.1 g/dL (3.5-5.2); Alkaline Phosphatase 70 IU/L (35-105); Anion Gap 15.6 (5-19); Aspartate Amino Transferase 12 U/L (0-32); Blood Urea Nitrogen 7 mg/dL (6-20); Calcium 9.4 mg/dL (8.5-10.5); Carbon Dioxide 25 mmol/L (22-29); Chloride 102 mmol/L (98-107); Creatinine Clr Calc Pharmacy 152.1154; Globulin 2.8 g/dL (1.3-4.6); Glomerular Filtration Rate 110.7 mL/min (90-130); Glucose 89 mg/dL (65-115); Lipase 11 U/L (13-60); Osmolality Calculated 285 mOsm/kg (285-295); Potassium 3.6 mmol/L (3.5-5.1); Sodium 139 mmol/L (136-145); Total Bilirubin 0.3 mg/dL (0.15-1.2); Total Protein 6.9 g/dL (6.6-8.7)
[2021-08-13] MEDS: piperacillin-tazobactam 3.375 GM in sodium chloride 0.9% (plus) 50 ML IV (22:36)
[2021-08-13] MEDS: vancomycin 1,000 MG in sodium chloride 0.9% 250 ML 250 MG IV (23:01)
[2021-08-14] VITALS (11 sets, daily range): BP systolic 119–158; BP diastolic 77–92; PULSE 67–82; RESP 18–20; TEMP 36.6–37.1; O2SAT 95–98
[2021-08-14] MEDS: sodium chloride 0.9% 1,000 ML 100 ML IV ×3 (00:33→20:07)
[2021-08-14] MEDS: morphine 4 mg/mL SDV 1 mL IVP ×4 (02:03→21:27)
[2021-08-14] MEDS: ondansetron 2 mg/ML SDV 2 mL 4 MG IVP (02:53)
[2021-08-14] MEDS: piperacillin-tazobactam 3.375 GM in sodium chloride 0.9% (plus) 50 ML IV ×3 (04:34→20:06)
[2021-08-14 05:43] LABS: Basophils # 0.1 10^3/uL (0.0-0.1); Basophils % 0.5 %; Eosinophils # 0.1 10^3/uL (0.0-0.8); Eosinophils % 1.3 %; Hematocrit 36.6 % (37.0-47.0); Hemoglobin 11.9 g/dL (11.5-15.3); Lymphocytes # 2.9 10^3/uL (0.8-4.8); Lymphocytes % 26.4 %; Mean Corpuscular HGB Conc 32.5 g/dL (30.0-36.0); Mean Corpuscular Hemoglobin 27.9 pg (28.0-34.0); Mean Corpuscular Volume 85.7 fl (81-99); Mean Platelet Volume 10.3 fL (7.4-10.4); Monocytes # 1.1 10^3/uL (0.2-0.9); Monocytes % 10.3 %; Neutrophils # 6.71 10^3/uL (1.8-7.7); Neutrophils % 60.9 %; Nucleated Red Blood Cells % 0 %; Platelet Count 386 10^3/cmm (130-400); Red Blood Count 4.27 10^6/uL (4.1-5.3); Red Cell Distribution Width 12.8 % (12.1-15.1)
--- NOTE | 2021-08-14 05:59 | PC.NURSE ---
Pt called this RN into room with cont c/o nausea unrelieved by zofran. Facial flushing noted. Pt stating when I open my eyes I'm seeing black spots . Reports new onset. Denies dizziness or lightheadedness. States if I don't move the pain is manageable and I feel like my body is warm but my veins are cold. Is that even a thing? . Call placed to Dr. Farah. New order for Reglan 10 mg IV push every 6 hours as needed for nausea. Pt updated.
[2021-08-14] MEDS: metoclopramide 5 mg/mL SDV 2 mL 10 MG IVP ×3 (06:07→21:27)
--- NOTE | 2021-08-14 08:19 | P.PN_ITS ---
Subjective Subjective: Interval history: Mrs. Cartwright S/P total vaginal hysterectomy postoperative day 5 Refers feeling beter than yestarday Vitals/I&O/Wt Last Vital Signs Temp 98.0 F 08/14/21 12:00 Pulse 78 08/14/21 12:00 Resp 18 08/14/21 14:09 BP 120/85 08/14/21 12:00 Pulse Ox 95 08/14/21 14:09 08/14/21 08/14/21 08/14/21 06:59 14:59 22:59 Intake Total 300 / 1300 1050 / 1050 Output Total 700 / 700 1450 / 1450 Balance -400 / 600 -400 / -400 Weight last 48 hrs Weight 104.326 kg Physical Exam Narrative: EXAM NARRATIVE: GA: Alert and oriented ?3. HEENT: WNL. Heart: Regular rate and rhythm. Lungs: Clear to auscultation bilaterally. Abdomen: Bowel sounds present, nontender AIRCRAFT PAINTER APPRENTICE: No bleeding. Extremities: No edema, no cyanosis, no calves pain. Data : 08/14/21 04:40 08/13/21 19:20 A&P Assessment and plan (1) Status post vaginal hysterectomy: Mrs. Wang 41-year-old female is status post total vaginal hysterectomy 5 days ago. Came to the emergency room complaining of abdominal pain and nausea. Upon evaluation in the emergency room a CT scan was ordered he was subjected to possibly abscess developing. CT scan review with in-house radiologist there is no significant inflammation process going, patient is afebrile and hemodynamically stable. WBC at only 11,000. Finding noted during CT scan may represent hematoma. Plan: will continue patient on observation. Keep patient n.p.o. Start on clear liquids in the morning if the patient stable and not worse. Status: Acute Attestations Medical Necessity Statement*: In my professional opinion per admitting diagnosis Coding Level of Care Code Acute Rn Clinical Quality for Maria Ines Hopper Diagnoses Status post vaginal hysterectomy Z90.710
--- NOTE | 2021-08-14 10:10 | PC.CHAP ---
Pastoral Care Encounter/Spiritual Assessment Type of Contact [] Declined epic cupid specialists visit [] Patient/Family/Request visit [] Outpatient visit [] Follow-up visit [] Physician referral [] Code/Alert [x] Routine visit [] Staff referral [] Actively dying [] Patient sleeping [] Family support [] [] Out of room [] Palliative care [] [] Receiving care in room [] Pre-surgical visit [] Trauma [] Long length of stay [] ICU visit [] Other: Relational/Emotional Strength x[] Patient feels connected with others/family/visitors/staff [] Distress [] Loneliness/isolation [] Abandonment Spirituality of Patient [x] Person of Roberta [] Attends Mandaeism of their Roberta [] Believes in Prayer [] Reads Bible or Sabianism materials [] There are Spiritual issues to be addressed Reproduction Technician Interventions [x] Prayer [x] Active listening [x] Non-anxious presence [] Spiritual/emotional support [] Crisis/trauma care [] Spiritual counseling [] Bereavement support [] Provided bereavement packet [] Provided Bible/devotional materials [] Provided toy/stuffed animal, coloring book to patient or family member [] Provided Communion [] Anointing/[place] [] Salvation []x Completed spiritual assessment [] Other: Impact on Illness or Injury [] Angry [] Fearful [] Anxious [] Often cries [] Exhaustion [] Unable to work [] Unable to attend tenriism [] Unable to walk/stand [] Unable to read [] Unable to drive [] Unable to eat/drink [] Unable to sleep [] Unable to be with family [] Patient intubated [] Other: Summary Time spent with patient 10 min
--- NOTE | 2021-08-14 14:56 | SUR.OPER ---
Jodie gave permission for the patient's 11 year old daughter to visit for 30 minutes.
--- NOTE | 2021-08-14 15:01 | PC.NURSE ---
Patient's daughter is at bedside at this time.
--- NOTE | 2021-08-14 17:37 | PM.HP ---
Providers/Chief Complaint Admitting Physician: Yaima Farah MD Primary Care Provider: SVETA Simons Chief Complaint: high B/P post op, N/V History of Present Illness Keira Cartwright is a 41 year old female who had surgery on 08/09 and had a total vaginal hysterectomy. She presents to the ER with complaints of worsening low abdominal pain. A CT scan shows a possible cuff abscess and or bowel injury. The patient doesn't appear ill. She has a barely elevated WBC count of 11,000. She is afebrile. Her only symptom appears to be the pain. Review of Systems General: Reports: 10 or more systems reviewed and unremarkable except in HPI and below Medications/Allergies Home Medications Medication Instructions Recorded Confirmed Last Taken Type albuterol sulfate 2 inh INHALATION Q4H PRN #1 each 05/07/20 08/14/21 08/08/21 Rx albuterol sulfate 2.5 mg INHALATION Q4H PRN #90 ml 05/13/20 08/14/21 08/08/21 Rx hydroxyzine HCl 25 mg tablet 25 mg PO TID PRN 05/13/20 08/14/21 08/08/21 History epinephrine 0.3 mg/0.3 mL 0.3 mg IM ONCE PRN ea 07/06/21 08/14/21 08/08/21 History injection, auto-injector acetaminophen 325 mg PO Q4H PRN #60 cap 08/10/21 08/14/21 08/13/21 Rx docusate sodium [Colace] 100 mg PO BID #60 cap 08/10/21 08/14/21 08/13/21 Rx ferrous sulfate [Iron (ferrous 325 mg PO BID #60 tab 08/10/21 08/14/21 08/13/21 Rx sulfate)] hydrocodone-acetaminophen 1 tab PO Q4H PRN #30 tab 08/10/21 08/14/21 08/13/21 Rx ibuprofen 800 mg PO TID PRN #60 tab 08/10/21 08/14/21 08/13/21 Rx mineral oil 5 ml PO ONCE 08/14/21 08/14/21 08/10/21 History Allergies Allergy/AdvReac Type Severity Reaction Status Date / Time azithromycin Allergy ADV-Weaknes Verified 08/14/21 10:10 s cinnamon Allergy ALGY-Difficulty Verified 08/14/21 10:10 Breathing PFSH Acute PFSH: Medical History Asthma Diabetes HTN (hypertension), benign No pertinent past medical history neghx: thyroid,dvt/pe PCP: Modesta Whipple Surgical History Hx of cholecystectomy (~2010) Family History Grandfather Heart disease Paternal Diabetes Paternal Grandmother Heart disease Paternal Diabetes Paternal Family/Other Heart disease Paternal Uncle Colon cancer Maternal Great Grandmother--dx age unknown Paternal Uncle--dx age unknown Diabetes Paternal side in general Hypercholesteremia Paternal side in general Father Diabetes Hypertension Sister Diabetes Denies family history of Ovarian cancer Breast cancer Uterine cancer Thyroid disease Stroke Vitals/I&O/Wt Last Vital Signs Temp 98.0 F 08/14/21 12:00 Pulse 78 08/14/21 12:00 Resp 18 08/14/21 14:09 BP 120/85 08/14/21 12:00 Pulse Ox 95 08/14/21 14:09 08/14/21 08/14/21 08/14/21 06:59 14:59 22:59 Intake Total 300 / 1300 1050 / 1050 Output Total 700 / 700 1450 / 1450 Balance -400 / 600 -400 / -400 Weight last 48 hrs Weight 230 lb Physical Exam Const: COMMON NORMALS: patient oriented x3, no limitations, healthy appearing, alert and well nourished GENERAL APPEARANCE: cooperative and well developed ORIENTATION/CONSCIOUSNESS: Yes awake, Yes oriented to person, Yes oriented to place and Yes oriented to time Resp: COMMON NORMALS: normal respiratory effort EFFORT & INSPECTION: Yes able to speak in complete sentences Psych: COMMON NORMALS: mental status grossly normal, Normal thought process present, cooperative, normal affect and speech normal APPEARANCE: Yes grossly normal and Yes well kempt Data : 08/14/21 04:40 08/13/21 19:20 A&P Assessment and plan (1) Abscess, intra-abdominal, postoperative: will admit for observation IV antibiotics will notify Dr. Enriquez of patient's admission The patient is stable currently. will watch closely for worsening condition. Status: Acute Attestations Medical Necessity Statement*: The patient is admitted for observation Coding Level of Care Code Acute Operations Support Coordinator for Chg Fwd Diagnoses Abscess, intra-abdominal, postoperative T81.43XA
[2021-08-14] MEDS: metroNIDAZOLE 500 MG Tablet PO (18:07)
--- NOTE | 2021-08-14 19:01 | PC.NURSE ---
Report to Myriam ALLEN at this time.
[2021-08-14] MEDS: zolpidem 5 mg Tablet PO (21:23)
[2021-08-15] VITALS (10 sets, daily range): BP systolic 120–152; BP diastolic 76–92; PULSE 63–83; RESP 14–19; TEMP 36.7–37; O2SAT 92–96
[2021-08-15] MEDS: piperacillin-tazobactam 3.375 GM in sodium chloride 0.9% (plus) 50 ML IV ×3 (04:11→20:49)
[2021-08-15] MEDS: metoclopramide 5 mg/mL SDV 2 mL 10 MG IVP ×2 (04:18→13:08)
[2021-08-15] MEDS: morphine 4 mg/mL SDV 1 mL IVP ×4 (04:21→20:51)
[2021-08-15] MEDS: sodium chloride 0.9% 1,000 ML 100 ML IV ×2 (06:15→17:32)
[2021-08-15] MEDS: metroNIDAZOLE 500 MG Tablet PO ×2 (08:24→17:33)
[2021-08-15] MEDS: ondansetron 2 mg/ML SDV 2 mL 4 MG IVP ×2 (08:26→20:51)
--- NOTE | 2021-08-15 10:36 | US_ITS ---
WS: [id number] PELVIC ULTRASOUND REASON FOR VISIT: follow up post hysterectomy TECHNIQUE: Grayscale and Doppler transabdominal ultrasound of the pelvis. FINDINGS: Transabdominal real-time grayscale and color flow Doppler ultrasound evaluation of the pelvis. No abdominal wall mass identified. Uterus absent. Ovaries were not identified. No adnexal mass identified. No free fluid or hematoma was identified. No free fluid. US/US pelvic complete* [id number] IMPRESSION: No significant abnormality identified.
--- NOTE | 2021-08-15 11:00 | PC.CHAP ---
Pastoral Care Encounter/Spiritual Assessment Type of Contact [] Declined annual giving officer visit [] Patient/Family/Request visit [] Outpatient visit [] Follow-up visit [] Physician referral [] Code/Alert [x] Routine visit [] Staff referral [] Actively dying [] Patient sleeping [] Family support [] [] Out of room [] Palliative care [] [] Receiving care in room [] Pre-surgical visit [] Trauma [] Long length of stay [] ICU visit [] Other: Relational/Emotional Strength [] Patient feels connected with others/family/visitors/staff [] Distress [] Loneliness/isolation [] Abandonment Spirituality of Patient [x] Person of Roberta [] Attends Evangelical of their Roberta [x] Believes in Prayer [] Reads Bible or Episcopal materials [] There are Spiritual issues to be addressed Quantitative Analyst Interventions [x] Prayer [] Active listening [] Non-anxious presence [] Spiritual/emotional support [] Crisis/trauma care [] Spiritual counseling [] Bereavement support [] Provided bereavement packet [] Provided Bible/devotional materials [] Provided toy/stuffed animal, coloring book to patient or family member [] Provided Communion [] Anointing/[place] [] Salvation [] Completed spiritual assessment [] Other: Impact on Illness or Injury [] Angry [] Fearful [] Anxious [] Often cries [] Exhaustion [] Unable to work [] Unable to attend alevism [] Unable to walk/stand [] Unable to read [] Unable to drive [] Unable to eat/drink [] Unable to sleep [] Unable to be with family [] Patient intubated [] Other: Summary This young woman was upset, crying, asked for the box of Kleenex, and her face was flushed red with tears present. I did not detect she wanted to visit more, but probably will sooner or later. Time spent with patient 2 minutes
--- NOTE | 2021-08-15 12:32 | P.PN_ITS ---
Subjective Subjective: Interval history: Patient refers still feels tenderness, but pain under control with medication 02/11. Vitals/I&O/Wt Last Vital Signs Temp 98.5 F 08/15/21 15:52 Pulse 83 08/15/21 15:52 Resp 17 08/15/21 15:52 BP 128/81 08/15/21 15:52 Pulse Ox 96 08/15/21 15:52 08/15/21 08/15/21 08/15/21 06:59 14:59 22:59 Intake Total 1050 / 3101.667 50 / 50 Output Total 650 / 2800 400 / 400 Balance 400 / 301.667 -350 / -350 Weight last 48 hrs Weight 104.326 kg Physical Exam Narrative: EXAM NARRATIVE: GA: Alert and oriented ?3. HEENT: WNL. Heart: Regular rate and rhythm. Lungs: Clear to auscultation bilaterally. Abdomen: Bowel sounds present, minimal tenderness, no guarding. 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 Extremities: No edema, no cyanosis, no calves pain. Data : 08/15/21 13:39 08/13/21 19:20 A&P Assessment and plan (1) Status post vaginal hysterectomy: Mrs. Wang 41-year-old female is status post total vaginal hysterectomy 7 days ago. Came to the emergency room complaining of abdominal pain and nausea. Upon evaluation in the emergency room a CT scan was ordered he was subjected to possibly abscess developing. Patient still refers some t enderness, controlled by pain medication, she is afebrile and hemodynamically stable. Plan: will continue patient on observation. CT scan in the morning CBC in the morning Continue clear liquids Status: Acute Attestations Medical Necessity Statement*: Per admitting diagnosis Coding Level of Care Code Acute Cable Tv Installer for [facility] Diagnoses Status post vaginal hysterectomy Z90.710
[2021-08-15 13:43] LABS: Glucose Point of Care 84 mg/dL (70-110)
[2021-08-15 13:53] LABS: Basophils % 0.3 %; Eosinophils # 0.2 10^3/uL (0.0-0.8); Eosinophils % 1.3 %; Hematocrit 38.1 % (37.0-47.0); Hemoglobin 12.5 g/dL (11.5-15.3); Lymphocytes # 2.4 10^3/uL (0.8-4.8); Lymphocytes % 18.5 %; Mean Corpuscular HGB Conc 32.8 g/dL (30.0-36.0); Mean Corpuscular Hemoglobin 28.3 pg (28.0-34.0); Mean Corpuscular Volume 86.4 fl (81-99); Mean Platelet Volume 9.7 fL (7.4-10.4); Monocytes % 7.6 %; Neutrophils # 9.16 10^3/uL (1.8-7.7); Neutrophils % 71.8 %; Nucleated Red Blood Cells % 0 %; Platelet Count 386 10^3/cmm (130-400); Red Blood Count 4.41 10^6/uL (4.1-5.3); Red Cell Distribution Width 12.5 % (12.1-15.1); White Blood Count 12.8 10^3/uL (4.0-10.0)
--- NOTE | 2021-08-15 18:53 | PC.NURSE ---
Report to Basia ALLEN at this time.
[2021-08-15] MEDS: zolpidem 5 mg Tablet PO (20:50)
[2021-08-16] VITALS (8 sets, daily range): BP systolic 111–151; BP diastolic 73–97; PULSE 66–78; RESP 14–18; TEMP 36.4–36.9; O2SAT 93–97
[2021-08-16] MEDS: sodium chloride 0.9% 1,000 ML 100 ML IV (02:15)
[2021-08-16 03:16] LABS: Basophils % 0.4 %; Eosinophils # 0.2 10^3/uL (0.0-0.8); Eosinophils % 2.2 %; Hematocrit 35.1 % (37.0-47.0); Hemoglobin 11.4 g/dL (11.5-15.3); Lymphocytes # 2.6 10^3/uL (0.8-4.8); Lymphocytes % 25.7 %; Mean Corpuscular HGB Conc 32.5 g/dL (30.0-36.0); Mean Corpuscular Hemoglobin 27.6 pg (28.0-34.0); Mean Platelet Volume 9.9 fL (7.4-10.4); Monocytes # 1.1 10^3/uL (0.2-0.9); Monocytes % 10.5 %; Neutrophils # 6.22 10^3/uL (1.8-7.7); Neutrophils % 60.8 %; Nucleated Red Blood Cells % 0 %; Platelet Count 367 10^3/cmm (130-400); Red Blood Count 4.13 10^6/uL (4.1-5.3); Red Cell Distribution Width 12.5 % (12.1-15.1); White Blood Count 10.2 10^3/uL (4.0-10.0)
[2021-08-16] MEDS: morphine 4 mg/mL SDV 1 mL IVP ×2 (04:10→08:15)
[2021-08-16] MEDS: ondansetron 2 mg/ML SDV 2 mL 4 MG IVP (04:10)
[2021-08-16] MEDS: piperacillin-tazobactam 3.375 GM in sodium chloride 0.9% (plus) 50 ML IV ×2 (04:17→12:33)
--- NOTE | 2021-08-16 08:00 | CT_ITS ---
WS: [id number] CT abdomen pelvis wo con [id number] REASON FOR EXAM: Abdominal pain IV CONTRAST ADMINISTERED: None. TOTAL EXAM DLP: 1769.[address] scans at [facility] use at least one of these dose optimization techniques: automat ed exposure control; mA and/or kV adjustment per patient size (includes targeted exams where dose is matched to clinical indication); or iterative reconstruction. FINDINGS: No change from the examination of 08/13/2021. ABDOMEN: Small cyst in the posterior dome of the right lobe of the liver. Pancreas and spleen are unremarkable. Post cholecystectomy. Adrenals and kidneys are within normal limits. No mass, adenopathy, focal fluid collection, or free fluid. PELVIS: The appearance of the vaginal cuff region is is similar however there appears to be less air in the mass . (Only 2 days since last exam). Alternative explanation for the findings is post transvaginal surgical bed hematoma with resolving po stoperative soft tissue air. Cannot exclude an inflammatory process however this would be rather soon . Do not see any definitive findings for bowel involvement [facility] this examination [facility] wo con [id number] IMPRESSION: Some interval change in the pelvic abnormality as described and discussed above .
[2021-08-16] MEDS: metroNIDAZOLE 500 MG Tablet PO ×2 (10:23→17:36)
[2021-08-16] MEDS: HYDROcodone-acetaminophen 10-325 mg Tablet 1 TAB PO ×2 (12:30→17:36)
[2021-08-16] MEDS: bisacodyl 5 mg Tablet PO (12:30)
[2021-08-16] MEDS: LORazepam 0.5 mg Tablet PO (12:30)
--- NOTE | 2021-08-16 14:23 | P.DS_ITS ---
Discharge Providers MATERIAL FLOW ENGINEER Date of Admission: 08/14/21 00:09 Date of Discharge: 08/16/21 Attending Provider at Admission: Yaima Farah MD Attending Provider at Discharge: Apollo Enriquez MD Primary Care Provider: SVETA Simons Diagnoses at Discharge Discharge Diagnosis (1) Status post vaginal hysterectomy: Status: Acute Reason for Visit Reason for Visit: high B/P post op, N/V Hospital Course Hospital Course Mrs. Borden 5-year-old female is status post vaginal hysterectomy 8 days ago. Was admitted from the ER on postoperative day 5 with suspicion for possible abscess versus bowel perforation. Patient had been afebrile hemodynamically stable throughout her stay/observation. CT scan this morning showed no definitive findings for bowel involvement. And findings is suggestive of suspected hematoma. Patient was counseled regarding findings discharged home with the same postop precautions, no heavy lifting, pelvic rest, and return to the clinic or emergency room if she start having any fever bleeding or increased pain. Physical Exam Narrative: EXAM NARRATIVE: GA: Alert and oriented ?3. HEENT: WNL. Heart: Regular rate and rhythm. Lungs: Clear to auscultation bilaterally. Abdomen: Bowel sounds present, minimal tenderness, no guarding, or distention. TABLE MAKER: No bleeding. Extremities: No edema, no cyanosis, no calves pain. Discharge Data Data Completed and Pending: Completed Studies During Hospitalization Category Date Time Status CT abdomen pelvis w con* [id number] Urge nt Cat Scan 08/13/21 19:[address] abdomen pelvis wo con [id number] Rout ine Cat Scan 08/16/21 08:00 Completed US pelvic complet e* [id number] Routine Ultrasound 08/15/21 10:36 Completed Labs from last 24 hours 08/16/21 02:46 WBC 10.2 H RBC 4.13 Hgb 11.4 L Hct 35.1 L MCV 85.0 MCH 27.6 L MCHC 32.5 RDW 12.5 Plt Count 367 MPV 9.9 Neut % (Auto) 60.8 Lymph % (Auto) 25.7 [place] % (Auto) 10.5 Eos % (Auto) 2.2 Baso % (Auto) 0.4 Neut # (Auto) 6.22 Lymph # (Auto) 2.6 [place] # (Auto) 1.1 H Eos # (Auto) 0.2 Baso # (Auto) 0.0 Nucleated RBC % (a uto) 0 Nucleated RBCs # 0.0 Vitals: Last Vital Signs Temp 97.6 F 08/16/21 12:00 Pulse 74 08/16/21 12:00 Resp 14 08/16/21 12:00 BP 151/97 08/16/21 12:00 Pulse Ox 97 08/16/21 12:00 Discharge Plan Discharge Patient Disposition: Home Condition: Stable Prescriptions: New metronidazole 500 mg tablet 500 mg PO BID 14 Days Qty: 28 RF: 0 Continued hydroxyzine HCl 25 mg tablet 25 mg PO TID PRN (Reason: Itching) RF: 0 albuterol sulfate 2.5 mg /3 mL (0.083 %) solution for nebulization 2.5 mg INHALATION Q4H PRN (Reason: shortness of breath or wheezing) Qty: 90 RF: 0 epinephrine [EpiPen] 0.3 mg/0.3 mL auto-injector 0.3 mg IM ONCE PRN (Reason: Allergic Reaction) RF: 0 albuterol sulfate 90 mcg/actuation aerosol powdr breath activated 2 inh INHALATION Q4H PRN (Reason: shortness of breath or wheezing) Qty: 1 RF: 0 acetaminophen 325 mg capsule 325 mg PO Q4H PRN (Reason: fever or postoperative pain) Qty: 60 RF: 0 ibuprofen 800 mg tablet 800 mg PO TID PRN (Reason: pain) Qty: 60 RF: 0 hydrocodone-acetaminophen 5-325 mg tablet 1 tab PO Q4H PRN (Reason: pain) Qty: 30 RF: 0 docusate sodium [Colace] 100 mg capsule 100 mg PO BID Qty: 60 RF: 0 ferrous sulfate [Iron (ferrous sulfate)] 325 mg (65 mg iron) tablet 325 mg PO BID Qty: 60 RF: 0 mineral oil Oil 5 ml PO ONCE RF: 0 Discharge Orders: Discharge Order (Routine); Ordered 08/16/21 Ordered By: Apollo Enriquez Referrals: Modesta Whipple FNP [Primary Care Provider] - Discharge Diet: Usual diet Discharge Activity: Increase activity as tolerated Patient Instructions: Vaginal Hysterectomy (GEN), Opioid Safety Activity Restrictions/Additional Instructions: 1. Please call [facility] on next working day to make your post-operative appointment in 2 weeks. 2. Please stay home until you come back to the clinic on first post-operative check up. 3. Please follow instructions on your medications CAREFULLY. 4. If you have abdominal incision, do not cover it unless dressing is necessary because of drainage. OK to shower, but avoid bath. Leave steri-strips until they fall off. If they are still on one week after surgery, you may remove them. 5. If you had vaginal surgery or vaginal repair, Dr. Enriquez may instruct you to take SITZ bath. 6. Yellow, blood tinged odorous vaginal discharge is usually normal after hysterectomy or vaginal surgeries. 7. No sexual intercourse, tampons, or douches until you are completely released from the post-operative care. 8. Avoid constipation by eating right and maybe using some Metamucil or Milk of Magnesia. 9. All prescription refills are given during the working hours. Please do no wait till it runs out. Call the clinic at [phone] before your medication runs out. The clinic will get in touch with your doctor to prescribe medications if necessary. 10. Please remain within 40 mile radius from our hospital because emergencies do happen now and then during the post-operative period. 11. If you have stairs at home, take one step at a time slowly and minimize the number of trips. It helps to stay in one floor for the next few days. No lifting except what you can lift by one hand until you are released from the post-operative care. 12. Driving is discouraged until you are well healed. It may be 3-4 weeks before you feel strong enough to drive. You should be able to turn and look through the rear window without pain and you should be able to push the brake pedal very hard without pain before you drive. No fast rules, but SAFETY should be your primary concern. DO NOT drive if you are on sedating medications such as narcotics. 13. Call the clinic (during working hours) to make urgent appointment or go to the Emergency room, if any of the following occurs: i. Vaginal bleeding becomes heavy, more than a period. ii. Incision becomes red and sore, or drains pus. iii. Your temperature is over 100.4 or you have chill. iv. IV site becomes red and swollen (a little ``knot?? is usually OK) v. Persistent nausea and vomiting vi. Persistent constipation or diarrhea vii. Rash or allergic reaction to medications. Discharge Attestations MATERIAL FLOW ENGINEER Time Spent in Discharge Care*: greater than 30 min Coding Level of Care Code Acute Neuroscience Director Na for Chg Fwd Diagnoses Status post vaginal hysterectomy Z90.710
--- NOTE | 2021-08-17 15:40 | PC.SOCIAL ---
discharge follow up call made, spoke with patient. patient reports she can walk today, which is good. she is taking her hydrocodone, tylenol and motrin with pain relief. she reports a little more spotting today but nothing major. patient is aware of follow up appointments with her pcp and dr. gutierrez. patient denies concerns.
== END 2021-08-16 18:30 | disposition home or self-care (01) | DRG 863 ==
LOC: ER 23:24 → MEDSURG 08-14 03:21
PROVIDERS: Obstetrics & Gynecology; Admitting Provider Obstetrics & Gynecology; Emergency Provider Emergency Medicine; PCP Registered Nurse; Visit Provider Obstetrics & Gynecology
DX: T81.43XA Infection following a procedure, organ and space surgical site, initial encounter (principal); Y83.8 Other surgical procedures as the cause of abnormal reaction of the patient, or of later complication, without mention of misadventure at the time of the procedure; G89.18 Other acute postprocedural pain; R11.0 Nausea; J45.909 Unspecified asthma, uncomplicated; E11.9 Type 2 diabetes mellitus without complications; I10 Essential (primary) hypertension; Z98.890 Other specified postprocedural states; Z90.710 Acquired absence of both cervix and uterus
CPT/HCPCS: 36415; 36416; 74176; 74177; 76856; 80053; 81001; 82962; 83605; 83690; 85025; 96365; 96367; 96375; 96376; 99285; J1170; J2270; J2405; J2543; J2765; J3370; J7030; J7050; Q9967

== ENCOUNTER → 2021-09-19 10:13 | Outpatient (BNVA) | payer OTHER, SELFPAY | PROVIDERS: PCP Registered Nurse; Visit Provider Obstetrics & Gynecology | DX: R23.2 Flushing (principal); Z48.816 Encounter for surgical aftercare following surgery on the genitourinary system; Z90.710 Acquired absence of both cervix and uterus; F41.9 Anxiety disorder, unspecified | CPT/HCPCS: 83001; 84443 ==

== ENCOUNTER 2021-10-05 19:02 | Emergency (ER) | payer OTHER, SELFPAY ==
[2021-10-05 19:16] VITALS: BP 141/109; PULSE 107; RESP 20; TEMP 37; O2SAT 98; BMI 35.5
[2021-10-05 21:40] LABS: Basophils # 0.1 10^3/uL (0.0-0.1); Basophils % 0.4 %; Eosinophils # 0.1 10^3/uL (0.0-0.8); Eosinophils % 1.1 %; Hematocrit 42.9 % (37.0-47.0); Hemoglobin 14.3 g/dL (11.5-15.3); Lymphocytes # 3.7 10^3/uL (0.8-4.8); Lymphocytes % 29.4 %; Mean Corpuscular HGB Conc 33.3 g/dL (30.0-36.0); Mean Corpuscular Hemoglobin 28.8 pg (28.0-34.0); Mean Corpuscular Volume 86.3 fl (81-99); Mean Platelet Volume 9.6 fL (7.4-10.4); Monocytes # 1.1 10^3/uL (0.2-0.9); Monocytes % 8.6 %; Neutrophils # 7.52 10^3/uL (1.8-7.7); Neutrophils % 59.9 %; Nucleated Red Blood Cells % 0 %; Platelet Count 416 10^3/cmm (130-400); Red Blood Count 4.97 10^6/uL (4.1-5.3); Red Cell Distribution Width 12.4 % (12.1-15.1); White Blood Count 12.6 10^3/uL (4.0-10.0)
[2021-10-05 21:57] LABS: Alanine Aminotransferase 23 U/L (0-33); Albumin Level 4.6 g/dL (3.5-5.2); Alkaline Phosphatase 80 IU/L (35-105); Anion Gap 15.2 (5-19); Aspartate Amino Transferase 16 U/L (0-32); Blood Urea Nitrogen 6 mg/dL (6-20); Carbon Dioxide 24 mmol/L (22-29); Chloride 102 mmol/L (98-107); Creatinine Clr Calc Pharmacy 148.5454; Globulin 2.5 g/dL (1.3-4.6); Glomerular Filtration Rate 110.7 mL/min (90-130); Glucose 98 mg/dL (65-115); Lipase 17 U/L (13-60); Osmolality Calculated 282 mOsm/kg (285-295); Potassium 4.2 mmol/L (3.5-5.1); Sodium 137 mmol/L (136-145); Total Bilirubin 0.2 mg/dL (0.15-1.2); Total Protein 7.1 g/dL (6.6-8.7)
[2021-10-05 21:58] LABS: HCG, Serum Qual Negative (Negative)
--- NOTE | 2021-10-06 01:43 | CTR_ITS ---
PROCEDURE INFORMATION: Exam: CT Abdomen And Pelvis With Contrast Exam date and time: 10/06/2021 1:43 AM Age: 41 years old Clinical indication: Abdominal pain; Localized; Left lower quadrant (llq); Prior surgery; Surgery date: 1-6 months; Surgery type: Partial hysterectomy in 2020. Gb. ; Patient HX: Patient C/O llq pain and nausea. Patient had history of internal hematoma development from hysterectomy surgery in 2020 that resolved without additional surgery. TECHNIQUE: Imaging protocol: Computed tomography of the abdomen and pelvis with contrast. Radiation optimization: All CT scans at this facility use at least one of these dose optimization techniques: automated exposure control; mA and/or kV adjustment per patient size (includes targeted exams where dose is matched to clinical indication); or iterative reconstruction. Contrast material: OMNI 300; Contrast volume: 95 ml; Contrast route: INTRAVENOUS (IV); COMPARISON: CT abdomen pelvis wo con [id number] 08/16/2021 11:25 AM RADIATION DOSE METRICS: Total DLP (mGy-cm): 1743.91 FINDINGS: Lungs: The lung bases are clear. Liver: There is fatty infiltration of the liver. There are two small well-defined low attenuation areas in the liver, larger in the posterior dome of the right lobe measures 9 mm. No significant interval change. These are nonspecific, but are statistically most likely small cysts or cavernous hemangiomas. Gallbladder and bile ducts: Prior cholecystectomy, no significant biliary tree dilation. Pancreas: Unremarkable. Spleen: Unremarkable. Adrenal glands: Unremarkable. Kidneys and ureters: No hydronephrosis of either kidney. No visible ureteral calculus. No perinephric fluid. The kidneys enhance homogeneously. Stomach and bowel: No significant bowel distention. There are no CT findings to strongly suggest diverticulitis. Appendix: The appendix is visualized and appears normal. Intraperitoneal space: No free intraperitoneal air, or ascites. Vasculature: No evidence for abdominal aortic aneurysm. Lymph nodes: No retroperitoneal adenopathy. Urinary bladder: Possibly some mild diffuse urinary bladder wall thickening. While nonspecific, this could indicate evidence for cystitis. Please correlate clinically. Reproductive: Prior hysterectomy. The right ovary contains a 20 mm dominant follicle versus very small cyst. Significance uncertain due to small size. Several dominant follicles in the left ovary. Trace amount of cul-de-sac fluid. The presumed postoperative hematoma seen adjacent to the vaginal cuff on the comparison exam is no longer definitely present, presumably resolved. Bones/joints: No significant acute finding. Soft tissues: Small umbilical hernia, containing only fat. The appearance is similar to the prior exam. CT/CT abdomen pelvis w con* [id number] IMPRESSION: 1. No free air or significant bowel distention. 2. Possible mild urinary bladder wall thickening, see above. 3. No hydronephrosis of either kidney. No visible ureteral calculus. 4. The presumed postoperative hematoma seen adjacent to the vaginal cuff on the comparison exam is no longer definitely present, presumably resolved. 5. The right ovary contains a 20 mm dominant follicle versus very small cyst. Significance uncertain due to small size. Several dominant follicles in the left ovary. Trace amount of cul-de-sac fluid. 6. No diverticulitis. 7. Normal appendix. 8. Other findings discussed above. Radiation Dose CTDIVOL = (mGy): DLP = 1743.91 (mGy-cm)
--- NOTE | 2021-10-06 01:58 | W.ED.ABDPA2 ---
HPI - Abdominal Pain General: Chief Complaint: Abdominal Pain Stated Complaint: ABD Pain\ High Blood Pressure Time Seen by Provider: 10/05/21 23:59 Source: patient Mode of arrival: ambulatory Limitations: no limitations History of Present Illness: HPI narrative: 41-year-old female who had a history of a hysterectomy back in August 09 end up having a hematoma caused pain and readmission did not require further surgery patient states she started having pain in her left lower quadrant again this Saturday the pain is increased throughout the week states pain is currently a 6 out of 10 sharp in nature she denies any fever denies any vomiting or diarrhea denies any vaginal bleeding she been having normal bowel movements. She denies any worsening improving factors. MD elicited complaint: abdominal pain Associated Symptoms: Denies chills, dysuria and fever(s) Review of Systems Const: Denies: fever(s), chills, body aches or change in appetite Eyes: Denies: blurry vision or eye discomfort ENMT: Denies: throat pain or dental pain Card: Denies: chest pain Resp: Denies: dyspnea GI: Reports: abdominal pain : Denies: dysuria Musc: Denies: neck pain or back pain Skin/Breast: Denies: rash Neuro: Denies: headache(s) Psych: Denies: depression Nick/Lymph: Denies: easy bruising All/Imm: Denies: urticaria PFSH ED PFSH: Medical History Aftercare following surgery of the genitourinary system Asthma Diabetes HTN (hypertension), benign No pertinent past medical history neghx: thyroid,dvt/pe PCP: Modesta Whipple Surgical History Hx of cholecystectomy (~2010) Family History Grandfather Heart disease Paternal Diabetes Paternal Grandmother Heart disease Paternal Diabetes Paternal Family/Other Heart disease Paternal Uncle Colon cancer Maternal Great Grandmother--dx age unknown Paternal Uncle--dx age unknown Diabetes Paternal side in general Hypercholesteremia Paternal side in general Father Diabetes Hypertension Sister Diabetes Denies family history of Ovarian cancer Breast cancer Uterine cancer Thyroid disease Stroke Physical Exam Const: COMMON NORMALS: no acute distress, patient oriented x3 and healthy appearing HENMT: COMMON NORMALS: normocephalic and atraumatic HEAD & SCALP: normocephalic and atraumatic Eye: COMMON NORMALS: Equal, round and reactive pupils present and EOMs intact bilaterally PUPIL: Yes Equal, round and reactive pupils present Neck/C-Spine: COMMON NORMALS: full ROM and supple Chest: COMMONS NORMALS: normal inspection of the chest and normal palpation of entire chest wall Resp: COMMON NORMALS: normal respiratory effort, No retractions, No use of accessory muscles and clear to auscultation bilaterally AUSCULTATION: clear to auscultation bilaterally Cardio: COMMON NORMALS: regular rate, regular rhythm and No murmurs present (Cardio) RATE: regular rate RHYTHM: regular rhythm GI: COMMON NORMALS: Normal to inspection, nondistended, normoactive bowel sounds present, Soft to palpation, non-tender and no masses PALPATION: Yes Soft to palpation and Yes Tenderness to palpation present (GI) Details: LLQ Extremity: COMMON NORMALS: normal to inspection and full ROM Neuro: COMMON NORMALS: patient oriented x3, moves all extremities and no focal motor deficits Psych: COMMON NORMALS: mental status grossly normal, Normal thought process present and cooperative THOUGHT PROCESS: Normal thought process present Skin: COMMON NORMALS: no rashes or lesions noted and no wounds GENERAL SKIN EXAM: no rashes or lesions noted Course Vital Signs: Vital signs: Vital Signs Temperature 98.6 F 10/05/21 19:16 Pulse Rate 107 H 10/05/21 19:16 Respiratory Rate 18 10/06/21 04:30 Blood Pressure 138/96 10/06/21 04:30 Pulse Oximetry 97 10/06/21 04:30 MDM - Abdominal Pain MDM Narrative: Medical decision making narrative: Patient presents here with abdominal pain her pain here is much improved CT scan shows no acute findings no signs of any surgical emergencies patient blood work here is all normal as well she has no signs of urinary tract infection she is stable for discharge is to follow-up with PCP and return if worsening. Lab Data: Labs: Lab Results 10/05/21 10/05/21 10/05/21 21:34 21:34 21:34 WBC 12.6 10^3/uL H 10 ^3/uL (4.0-10.0) RBC 4.97 10^6/uL 10^6 /uL (4.1-5.3) Hgb 14.3 g/dL g/dL (11.5-15.3) Hct 42.9 % % (37.0-47.0) MCV 86.3 fl fl (81-99) MCH 28.8 pg pg (28.0-34.0) MCHC 33.3 g/dL g/dL (30.0-36.0) RDW 12.4 % % (12.1-15.1) Plt Count 416 10^3/cmm H 10 ^3/cmm (130-400) MPV 9.6 fL fL (7.4-10.4) Neut % (Auto) 59.9 % % Lymph % (Auto) 29.4 % % Heard % (Auto) 8.6 % % Eos % (Auto) 1.1 % % Baso % (Auto) 0.4 % % Neut # (Auto) 7.52 10^3/uL 10^3 /uL (1.8-7.7) Lymph # (Auto) 3.7 10^3/uL 10^3/ uL (0.8-4.8) Heard # (Auto) 1.1 10^3/uL H 10^ 3/uL (0.2-0.9) Eos # (Auto) 0.1 10^3/uL 10^3/ uL (0.0-0.8) Baso # (Auto) 0.1 10^3/uL 10^3/ uL (0.0-0.1) Nucleated RBC % (a uto) 0 % % Nucleated RBCs # 0.0 /100WBC /100W BC Sodium 137 mmol/L mmol/L (136-145) Potassium 4.2 mmol/L mmol/L (3.5-5.1) Chloride 102 mmol/L mmol/L (98-107) Carbon Dioxide 24 mmol/L mmol/L (22-29) Anion Gap 15.2 (5-19) BUN 6 mg/dL mg/dL (6-20) Creatinine 0.6 mg/dL mg/dL (0.5-0.9) GFR Calculation 110.7 mL/min mL/m in (90-130) Glucose 98 mg/dL mg/dL (65-115) Calculated Osmolal ity 282 mOsm/kg L mOs m/kg (285-295) Calcium 9.0 mg/dL mg/dL (8.5-10.5) Total Bilirubin 0.2 mg/dL mg/dL (0.15-1.2) AST 16 U/L U/L (0-32) ALT 23 U/L U/L (0-33) Alkaline Phosphata se 80 IU/L IU/L (35-105) Total Protein 7.1 g/dL g/dL (6.6-8.7) Albumin 4.6 g/dL g/dL (3.5-5.2) Globulin 2.5 g/dL g/dL (1.3-4.6) Lipase 17 U/L U/L (13-60) HCG, Qual Negative (Negative) Urine Color Urine Appearance Urine pH Ur Specific Gravit y Urine Protein Urine Glucose (UA) Urine Ketones Urine Blood Urine Nitrate Urine Bilirubin Urine Urobilinogen Ur Leukocyte Vandana ase 10/06/21 04:34 WBC RBC Hgb Hct MCV MCH MCHC RDW Plt Count MPV Neut % (Auto) Lymph % (Auto) Heard % (Auto) Eos % (Auto) Baso % (Auto) Neut # (Auto) Lymph # (Auto) Heard # (Auto) Eos # (Auto) Baso # (Auto) Nucleated RBC % (a uto) Nucleated RBCs # Sodium Potassium Chloride Carbon Dioxide Anion Gap BUN Creatinine GFR Calculation Glucose Calculated Osmolal ity Calcium Total Bilirubin AST ALT Alkaline Phosphata se Total Protein Albumin Globulin Lipase HCG, Qual Urine Color Yellow (Yellow) Urine Appearance Clear (CLEAR) Urine pH 5 (5-7) Ur Specific Gravit y 1.005 (1.005-1.030) Urine Protein Neg (Negative) Urine Glucose (UA) Norm (Normal) Urine Ketones Negative (Negative) Urine Blood Neg (Negative) Urine Nitrate Negative (Negative) Urine Bilirubin Neg (Negative) Urine Urobilinogen Neg mg/dL mg/dL (Negative) Ur Leukocyte Vandana ase Negative (Negative) Imaging Data ^: CT Abd/Pel: Attestation: I personally reviewed and interpreted this imaging study as follows: Radiologist's impression: [address] [address] [address] Scan Report Signed Patient: Keira Cartwright Unit #: [id number] : 1980 Age/Sex: 41 / F ADM Date: 10/05/21 Loc: ER Room/Bed: Attending Dr: Ordering Provider/Ordering MD: Sangeetha Garcia MD Date of Service: 10/06/21 Procedure(s): CT abdomen pelvis w con* [id number] Accession Number(s): [id number] Report Number: [id number] PROCEDURE INFORMATION: Exam: CT Abdomen And Pelvis With Contrast Exam date and time: 10/06/2021 1:43 AM Age: 41 years old Clinical indication: Abdominal pain; Localized; Left lower quadrant (llq); Prior surgery; Surgery date: 1-6 months; Surgery type: Partial hysterectomy in 2020. Gb. ; Patient HX: Patient C/O llq pain and nausea. Patient had history of internal hematoma development from hysterectomy surgery in 2020 that resolved without additional surgery. TECHNIQUE: Imaging protocol: Computed tomography of the abdomen and pelvis with contrast. Radiation optimization: All CT scans at this facility use at least one of these dose optimization techniques: automated exposure control; mA and/or kV adjustment per patient size (includes targeted exams where dose is matched to clinical indication); or iterative reconstruction. Contrast material: OMNI 300; Contrast volume: 95 ml; Contrast route: INTRAVENOUS (IV); COMPARISON: CT abdomen pelvis con [id number] 08/16/2021 11:25 AM RADIATION DOSE METRICS: Total DLP (mGy-cm): 1743.91 FINDINGS: Lungs: The lung bases are clear. Liver: There is fatty infiltration of the liver. There are two small well-defined low attenuation areas in the liver, larger in the posterior dome of the right lobe measures 9 mm. No significant interval change. These are nonspecific, but are statistically most likely small cysts or cavernous hemangiomas. Gallbladder and bile ducts: Prior cholecystectomy, no significant biliary tree dilation. Pancreas: Unremarkable. Spleen: Unremarkable. Adrenal glands: Unremarkable. Kidneys and ureters: No hydronephrosis of either kidney. No visible ureteral calculus. No perinephric fluid. The kidneys enhance homogeneously. Stomach and bowel: No significant bowel distention. There are no CT findings to strongly suggest diverticulitis. Appendix: The appendix is visualized and appears normal. Intraperitoneal space: No free intraperitoneal air, or ascites. Vasculature: No evidence for abdominal aortic aneurysm. Lymph nodes: No retroperitoneal adenopathy. Urinary bladder: Possibly some mild diffuse urinary bladder wall thickening. While nonspecific, this could indicate evidence for cystitis. Please correlate clinically. Reproductive: Prior hysterectomy. The right ovary contains a 20 mm dominant follicle versus very small cyst. Significance uncertain due to small size. Several dominant follicles in the left ovary. Trace amount of cul-de-sac fluid. The presumed postoperative hematoma seen adjacent to the vaginal cuff on the comparison exam is no longer definitely present, presumably resolved. Bones/joints: No significant acute finding. Soft tissues: Small umbilical hernia, containing only fat. The appearance is similar to the prior exam. CT/CT abdomen pelvis w con* [id number] IMPRESSION: 1. No free air or significant bowel distention. 2. Possible mild urinary bladder wall thickening, see above. 3. No hydronephrosis of either kidney. No visible ureteral calculus. 4. The presumed postoperative hematoma seen adjacent to the vaginal cuff on the comparison exam is no longer definitely present, presumably resolved. 5. The right ovary contains a 20 mm dominant follicle versus very small cyst. Significance uncertain due to small size. Several dominant follicles in the left ovary. Trace amount of cul-de-sac fluid. 6. No diverticulitis. 7. Normal appendix. 8. Other findings discussed above. Radiation Dose CTDIVOL = (mGy): DLP = 1743.91 (mGy-cm) Dictated By: Raffy Ford MD Signed By: Raffy Ford MD Signed Date/Time: 10/06/21510 DD/ 2 Discharge Plan Discharge Patient Disposition: Home Clinical Impression: Abdominal pain Qualifiers: Abdominal location: generalized Qualified Code(s): R10.84 - Generalized abdominal pain Condition: Stable Prescriptions: No Action hydroxyzine HCl 25 mg tablet 25 mg PO TID PRN (Reason: Itching) RF: 0 albuterol sulfate 2.5 mg /3 mL (0.083 %) solution for nebulization 2.5 mg INHALATION Q4H PRN (Reason: shortness of breath or wheezing) Qty: 90 RF: 0 epinephrine [EpiPen] 0.3 mg/0.3 mL auto-injector 0.3 mg IM ONCE PRN (Reason: Allergic Reaction) RF: 0 polyethylene glycol 3350 [Miralax] 17 gram/dose powder 17 g PO .every other day RF: 0 Probiotic Acidophilus 1.5 mg (250 million cell) capsule 100 mmu cells PO BID RF: 0 sertraline [Zoloft] 25 mg tablet 25 mg PO DAILY Qty: 30 RF: 1 hydrocodone-acetaminophen 5-325 mg tablet 1 tab PO Q4H PRN (Reason: postoperative pain) 5 Days Qty: 10 RF: 0 prenat.vits,ronnie,[id number] Tablet 1 tab PO DAILY RF: 0 albuterol sulfate 90 mcg/actuation aerosol powdr breath activated 2 inh INHALATION Q4H PRN (Reason: shortness of breath or wheezing) Qty: 1 RF: 0 acetaminophen 325 mg capsule 325 mg PO Q4H PRN (Reason: fever or postoperative pain) Qty: 60 RF: 0 ibuprofen 800 mg tablet 800 mg PO TID PRN (Reason: pain) Qty: 60 RF: 0 docusate sodium [Colace] 100 mg capsule 100 mg PO BID Qty: 60 RF: 0 ferrous sulfate [Iron (ferrous sulfate)] 325 mg (65 mg iron) tablet 325 mg PO BID Qty: 60 RF: 0 Discharge Orders: Discharge ED (Routine); Ordered 10/06/21 Ordered By: Sangeetha Garcia Referrals: Modesta Whipple FNP [Primary Care Provider] - 1-3 days Discharge Diet: Advance as tolerated Discharge Activity: Resume usual activity Patient Instructions: Abdominal Pain (ED) Coding Level of Care Code ED Restaurant Assistant for [employer] Fwd Exam Comprehensive
[2021-10-06] MEDS: morphine 4 mg/mL SDV 1 mL IVP (02:16)
[2021-10-06] MEDS: sodium chloride 0.9% 1,000 ML 999 ML IV (02:16)
[2021-10-06] MEDS: ondansetron 2 mg/ML SDV 2 mL 4 MG IVP (02:16)
[2021-10-06] MEDS: iohexol 300 mg/mL 100 mL Btl IV (02:16)
[2021-10-06 03:19] VITALS: RESP 18
[2021-10-06] MEDS: HYDROmorphone 1 mg/mL INJ 1 mL IVP (03:19)
[2021-10-06 04:30] VITALS: BP 138/96; RESP 18; O2SAT 97
[2021-10-06 04:44] LABS: Add Urine Microscopic? NO; Charge for UA Resulting for Rev
[2021-10-06 05:09] LABS: Bilirubin Urine Neg (Negative); Blood Urine Neg (Negative); Glucose Urine UA Norm (Normal); Ketones Urine Negative (Negative); Leukocyte Esterase Urine Negative (Negative); Nitrate Urine Negative (Negative); Protein Urine Neg (Negative); Specific Gravity, Urine 1.005 (1.005-1.030); Urine Appearance Clear (CLEAR); Urine Color Yellow (Yellow); Urobilinogen Urine Neg (Negative); pH Urine 5 (5-7)
[2021-10-06 05:40] VITALS: BP 138/87; PULSE 70
--- NOTE | 2021-10-06 05:42 | PC.NURSE ---
Pt. requested pain medication prescription , so that she has something to help her make it to the time she follows up with her doctor.
== END 2021-10-06 05:42 | disposition home or self-care (01) ==
PROVIDERS: Emergency Provider Emergency Medicine; PCP Registered Nurse
DX: R10.84 Generalized abdominal pain (principal); E11.9 Type 2 diabetes mellitus without complications; I10 Essential (primary) hypertension
CPT/HCPCS: 36415; 74177; 80053; 81003; 83690; 84703; 85025; 96361; 96374; 96375; 99284; J1170; J2270; J2405; J7030; Q9967

== ENCOUNTER → 2021-10-13 15:59 | Outpatient (BNVA) | payer OTHER, SELFPAY | PROVIDERS: PCP Registered Nurse; Visit Provider Obstetrics & Gynecology | DX: R10.32 Left lower quadrant pain (principal); N83.201 Unspecified ovarian cyst, right side | CPT/HCPCS: 76830 ==

== ENCOUNTER 2021-10-20 11:02 | Outpatient (CLI) | payer OTHER, SELFPAY ==
[2021-10-20 12:15] LABS: Free T4 Free Thyroxine 1.04 ng/dL (0.82-1.77)
[2021-10-23 15:11] LABS: IGF1 LC/MS 146 ng/mL (52-328); Z Score (Female) 0.1 SD (-2.0 - +2.0)
[2021-10-23 16:52] LABS: T3 Total 115 ng/dL (76-181)
[2021-10-30 15:09] LABS: Free Cortisol Urine 59.8 mcg/24 h (4.0-50.0); Total Urine 2700 mL; Urine Creatinine 1.59 g/24 h (0.50-2.15)
== END 2021-10-20 11:03 | disposition home or self-care (01) ==
LOC: LAB 11:04
PROVIDERS: PCP Registered Nurse; Visit Provider Internal Medicine
DX: I16.0 Hypertensive urgency (principal); R23.2 Flushing; Z90.710 Acquired absence of both cervix and uterus
CPT/HCPCS: 82384; 82530; 83497; 84305; 84439; 84443; 84480

== ENCOUNTER 2021-11-20 08:11 | Outpatient (CLI) | payer OTHER, SELFPAY ==
[2021-11-20 10:08] LABS: Urine Creatinine 96 mg/dL (28-217)
[2021-11-20 10:34] LABS: Total Volume Urine 1725 ml
[2021-11-24 20:03] LABS: Total Urine 1725 mL; Urine Creatinine 1.52 g/24 h (0.50-2.15)
== END 2021-11-20 08:12 | disposition home or self-care (01) ==
LOC: LAB 08:13
PROVIDERS: PCP Registered Nurse; Visit Provider Internal Medicine
DX: E11.9 Type 2 diabetes mellitus without complications (principal); R23.2 Flushing
CPT/HCPCS: 82530; 82570

== ENCOUNTER → 2021-11-27 13:04 | Outpatient (BNVA) | payer OTHER, SELFPAY | PROVIDERS: PCP Registered Nurse; Visit Provider Registered Nurse Neonatal Intensive Care | DX: Z20.822 Contact with and (suspected) exposure to COVID-19 (principal) | CPT/HCPCS: 87400 ==

== ENCOUNTER → 2021-11-28 10:10 | Outpatient (BNVA) | payer OTHER, SELFPAY | PROVIDERS: PCP Registered Nurse; Visit Provider Registered Nurse Neonatal Intensive Care | DX: Z20.822 Contact with and (suspected) exposure to COVID-19 (principal) | CPT/HCPCS: 87635 ==

== ENCOUNTER 2022-01-03 18:16 | Emergency (ER) | payer OTHER, SELFPAY ==
[2022-01-03 18:58] VITALS: BP 144/94; PULSE 95; RESP 16; TEMP 36.7; O2SAT 97; BMI 33.0
--- NOTE | 2022-01-03 19:57 | ED_ITS ---
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 Denies any worsening improving factors does have some patient she rates a 2 out of 10. She is unsure when her last tetanus was. Associated symptoms: Deny chills, fever(s) or headache(s) Review of Systems Const: Denies: fever(s), chills, body aches or change in appetite Eyes: Denies: blurry vision or eye discomfort ENMT: Denies: throat pain or dental pain Card: Denies: chest pain Resp: Denies: dyspnea GI: Denies: abdominal pain, nausea, vomiting or diarrhea : Denies: dysuria Musc: Reports: extremity pain Skin/Breast: Denies: rash Neuro: Denies: headache(s) Psych: Denies: depression Nick/Lymph: Denies: easy bruising All/Imm: Denies: urticaria PFSH ED PFSH: Medical History Aftercare following surgery of the genitourinary system Asthma Diabetes HTN (hypertension), benign No pertinent past medical history neghx: thyroid,dvt/pe PCP: Modesta Whipple Surgical History H/O: hysterectomy 08/09/2021: TVH performed by Dr. Enriquez at [facility] Hx of cholecystectomy (~2010) Family History Grandfather Heart disease Paternal Diabetes Paternal Grandmother Heart disease Paternal Diabetes Paternal Family/Other Heart disease Paternal Uncle Colon cancer Maternal Great Grandmother--dx age unknown Paternal Uncle--dx age unknown Diabetes Paternal side in general Hypercholesteremia Paternal side in general Father Diabetes Hypertension Sister Diabetes Denies family history of Ovarian cancer Breast cancer Uterine cancer Thyroid disease Stroke Social History Smoking and tobacco status: never smoked Second hand smoke exposure: No Smoking risk assessment/counseling performed?: No Alcohol intake: current Alcohol intake frequency: holidays/special occasions only Alcohol type: wine Desire information about substance/drug rehabilitation?: No Counseling given: No Adopted: No Caregiver/support person: No Lives independently: Yes Household members: children Housing: House Marital status: Number of children: 1 Highest education level completed: Some College, No Degree service: No Current occupational status: employed History of recent travel: Yes Physical Exam Const: COMMON NORMALS: no acute distress, patient oriented x3 and healthy appearing HENMT: COMMON NORMALS: normocephalic and atraumatic HEAD & SCALP: normocephalic and atraumatic Eye: COMMON NORMALS: Equal, round and reactive pupils present and EOMs intact bilaterally PUPIL: Yes Equal, round and reactive pupils present Neck/C-Spine: COMMON NORMALS: full ROM and supple Chest: COMMONS NORMALS: normal inspection of the chest and normal palpation of entire chest wall Resp: COMMON NORMALS: normal respiratory effort, No retractions, No use of accessory muscles and clear to auscultation bilaterally AUSCULTATION: clear to auscultation bilaterally Cardio: COMMON NORMALS: regular rate, regular rhythm and No murmurs present (Cardio) RATE: regular rate RHYTHM: regular rhythm GI: COMMON NORMALS: Normal to inspection, nondistended, normoactive bowel sounds present, Soft to palpation, non-tender and no masses PALPATION: Yes Soft to palpation Extremity: COMMON NORMALS: full ROM NARRATIVE EXTREMITY EXAM: Dog bite to left posterior knee mainly abrasions 1 puncture wound no large lacerations Neuro: COMMON NORMALS: patient oriented x3, moves all extremities and no focal motor deficits Psych: COMMON NORMALS: mental status grossly normal, Normal thought process present and cooperative THOUGHT PROCESS: Normal thought process present Skin: COMMON NORMALS: no rashes or lesions noted and no wounds GENERAL SKIN EXAM: no rashes or lesions noted Course Vital Signs: Vital signs: Vital Signs Temperature 98.1 F 01/03/22 18:58 Pulse Rate 95 01/03/22 18:58 Respiratory Rate 16 01/03/22 18:58 Blood Pressure 144/94 01/03/22 18:58 Pulse Oximetry 97 01/03/22 18:58 MDM - Animal Bite Medical Decision Making Presents with dog bite to the left leg does not require any sutures will give tetanus and placed on antibiotics for home. She knows the trial lawyer of the dog informed her she needs to contact authorities and get rabies status of the dog and have the dog observed by a vet there is any concern for possible rabies she is return for rabies vaccine will not start this time. Discharge Plan Discharge Patient Disposition: Home Clinical Impression: Dog bite Qualifiers: Encounter type: initial encounter Qualified Code(s): W54.0XXA - Bitten by dog, initial encounter Condition: Stable Prescriptions: New Augmentin 875-125 mg tablet 1 tab PO BID Qty: 14 0RF No Action hydroxyzine HCl 25 mg tablet 25 mg PO TID PRN (Reason: Itching) 0RF albuterol sulfate 2.5 mg /3 mL (0.083 %) solution for nebulization 2.5 mg INHALATION Q4H PRN (Reason: shortness of breath or wheezing) Qty: 90 0RF valerian root 500 mg capsule 500 mg PO DAILY 0RF sertraline [Zoloft] 25 mg tablet 50 mg PO DAILY 0RF epinephrine [EpiPen] 0.3 mg/0.3 mL auto-injector 0.3 mg IM ONCE PRN (Reason: Allergic Reaction) 0RF Rx Instructions: for 2 doses polyethylene glycol 3350 [Miralax] 17 gram/dose powder 17 g PO .every other day 0RF Probiotic Acidophilus 1.5 mg (250 million cell) capsule 100 mmu cells PO BID 0RF prenat.vits,ronnie,ysh-alim-posso Tablet 1 tab PO DAILY 0RF gabapentin 300 mg capsule 300 mg PO DAILY Qty: 30 0RF albuterol sulfate 90 mcg/actuation aerosol powdr breath activated 2 inh INHALATION Q4H PRN (Reason: shortness of breath or wheezing) Qty: 1 0RF acetaminophen 325 mg capsule 325 mg PO Q4H PRN (Reason: fever or postoperative pain) Qty: 60 0RF ibuprofen 800 mg tablet 800 mg PO TID PRN (Reason: pain) Qty: 60 0RF ferrous sulfate [Iron (ferrous sulfate)] 325 mg (65 mg iron) tablet 325 mg PO BID Qty: 60 0RF hydrocodone-acetaminophen 5-325 mg tablet 1 tab PO Q6H PRN (Reason: pain) Qty: 14 0RF Discharge Orders: Discharge ED (Routine); Ordered 01/03/22 Ordered By: Sangeetha Garcia Referrals: Modesta Whipple FNP [Primary Care Provider] - Discharge Diet: Advance as tolerated Patient Instructions: Opioid Safety Coding Level of Care Code ED Certified Orthotist Practice Manager for [facility]
[2022-01-03] MEDS: naproxen 500 mg Tablet PO (20:06)
== END 2022-01-03 20:12 | disposition home or self-care (01) ==
PROVIDERS: Emergency Provider Emergency Medicine; PCP Registered Nurse
DX: S81.852A Open bite, left lower leg, initial encounter (principal); W54.0XXA Bitten by dog, initial encounter; E11.9 Type 2 diabetes mellitus without complications; I10 Essential (primary) hypertension; Y99.0 Civilian activity done for income or pay
CPT/HCPCS: 99283

== ENCOUNTER 2022-01-05 10:40 | Emergency (ER) | payer OTHER, SELFPAY ==
[2022-01-05 10:50] VITALS: BP 151/107; PULSE 80; RESP 16; TEMP 36.8; O2SAT 96; BMI 37.1
--- NOTE | 2022-01-05 11:02 | ED_ITS ---
HPI - Animal Bite General: Chief Complaint: Animal Bite Stated Complaint: Dog bite Time Seen by Provider: 01/05/22 10:44 Source: patient Mode of arrival: ambulatory Limitations: no limitations History of Present Illness: Patient is a 41-year-old female presents to ED today stating she was told to come here by [facility] for rabies immunizations. Patient works as a home health nurse and was bit by a patient's dog 2 days ago. She states dog's immunization status was unknown and believes the animal has already been put down. Patient was seen in our ED 2 days ago and placed on Augmentin. Tetanus was updated at that point. She states employee health contacted her today and recommended she be seen for rabies shots. MD complaint: animal bite Onset (ago): day(s) Animal: dog Mechanism: bite Location - Extremities: Left: lower leg Associated symptoms: Reports no associated symptoms; Deny chills, fever(s) or headache(s) Related Data: Patient tetanus UTD: Yes Review of Systems Const: Denies: fever(s), chills, body aches, fatigue or malaise Eyes: Denies: change in vision Card: Denies: chest pain Resp: Denies: dyspnea GI: Denies: abdominal pain, nausea or vomiting Neuro: Denies: headache(s), numbness in extremities, weakness in extremities, sensory changes, difficulty walking or confusion [facility] ED PFSH: Medical History Aftercare following surgery of the genitourinary system Asthma Diabetes HTN (hypertension), benign No pertinent past medical history neghx: thyroid,dvt/pe PCP: Modesta Whipple Surgical History H/O: hysterectomy 08/09/2021: TVH performed by Dr. Enriquez at [facility] Hx of cholecystectomy (~2010) Family History Grandfather Heart disease Paternal Diabetes Paternal Grandmother Heart disease Paternal Diabetes Paternal Family/Other Heart disease Paternal Uncle Colon cancer Maternal Great Grandmother--dx age unknown Paternal Uncle--dx age unknown Diabetes Paternal side in general Hypercholesteremia Paternal side in general Father Diabetes Hypertension Sister Diabetes Denies family history of Ovarian cancer Breast cancer Uterine cancer Thyroid disease Stroke Social History Smoking and tobacco status: never smoked Second hand smoke exposure: No Smoking risk assessment/counseling performed?: No Alcohol intake: current Alcohol intake frequency: holidays/special occasions only Alcohol type: wine Desire information about substance/drug rehabilitation?: No Counseling given: No Adopted: No Caregiver/support person: No Lives independently: Yes Household members: children Housing: House Marital status: Number of children: 1 Highest education level completed: Some College, No Degree service: No Current occupational status: employed History of recent travel: Yes Physical Exam Const: COMMON NORMALS: no acute distress, patient oriented x3 and alert GE NERAL APPEARANCE: cooperative Extremity: EXTREMITY IMAGE (BACK): 1. few minor abrasions and one very small puncture like rinku that are all healing well; minimal swelling; no discharge, fluid collections, or lymphangitic streaking; surrounding ecchymosis present Neuro: STEPHANIE COMA SCALE: document GCS findings [place] coma scale eye opening: Spontaneous [place] coma scale verbal response: Orientated Stephanie coma scale motor response: Obey commands [place] coma scale total score: 15 COMMON NORMALS: patient oriented x3, moves all extremities, no focal motor deficits, no sensory deficits noted and gait normal SENSORIUM/ORIENTATION: Yes alert Course Vital Signs: Vital signs: Vital Signs Temperature 98.2 F 01/05/22 10:50 Pulse Rate 80 01/05/22 10:50 Respiratory Rate 16 01/05/22 10:50 Blood Pressure 151/107 01/05/22 10:50 Pulse Oximetry 96 01/05/22 10:50 MDM - Animal Bite Medical Decision Making Tetanus is UTD. Rabies immunizations/immune globulin given today. She was given instructions on remainder of immunization doses. Recommend continuing antibiotic as prescribed. Bite looks like it is healing well today. Discharge Plan Discharge Patient Disposition: Home Clinical Impression: Need for post exposure prophylaxis for rabies Dog bite Qualifiers: Encounter type: subsequent encounter Qualified Code(s): W54.0XXD - Bitten by dog, subsequent encounter Condition: Stable Prescriptions: No Action hydroxyzine HCl 25 mg tablet 25 mg PO TID PRN (Reason: Itching) 0RF albuterol sulfate 2.5 mg /3 mL (0.083 %) solution for nebulization 2.5 mg INHALATION Q4H PRN (Reason: shortness of breath or wheezing) Qty: 90 0RF valerian root 500 mg capsule 500 mg PO DAILY 0RF sertraline [Zoloft] 25 mg tablet 50 mg PO DAILY 0RF epinephrine [EpiPen] 0.3 mg/0.3 mL auto-injector 0.3 mg IM ONCE PRN (Reason: Allergic Reaction) 0RF Rx Instructions: for 2 doses polyethylene glycol 3350 [Miralax] 17 gram/dose powder 17 g PO .every other day 0RF Probiotic Acidophilus 1.5 mg (250 million cell) capsule 100 mmu cells PO BID 0RF prenat.vits,ronnie,hbp-kjrn-fzerm Tablet 1 tab PO DAILY 0RF gabapentin 300 mg capsule 300 mg PO DAILY Qty: 30 0RF albuterol sulfate 90 mcg/actuation aerosol powdr breath activated 2 inh INHALATION Q4H PRN (Reason: shortness of breath or wheezing) Qty: 1 0RF acetaminophen 325 mg capsule 325 mg PO Q4H PRN (Reason: fever or postoperative pain) Qty: 60 0RF ibuprofen 800 mg tablet 800 mg PO TID PRN (Reason: pain) Qty: 60 0RF ferrous sulfate [Iron (ferrous sulfate)] 325 mg (65 mg iron) tablet 325 mg PO BID Qty: 60 0RF Augmentin 875-125 mg tablet 1 tab PO BID Qty: 14 0RF hydrocodone-acetaminophen 5-325 mg tablet 1 tab PO Q6H PRN (Reason: pain) Qty: 14 0RF Discharge Orders: Discharge ED (Routine); Ordered 01/05/22 Ordered By: Cheryl Carlos Referrals: Modesta Whipple FNP [Primary Care Provider] - Patient Instructions: Rabies Vaccine (By injection), Rabies Immune Globulin (By injection) Coding Level of Care Code ED Glass Block Installer for Chg Fwd Exam Expanded Problem Focused
[2022-01-05] MEDS: rabies vaccine 2.5 unit SDV IM (11:21)
[2022-01-05 12:01] VITALS: BP 139/84; PULSE 72; RESP 16; O2SAT 98
== END 2022-01-05 12:02 | disposition home or self-care (01) ==
PROVIDERS: Emergency Provider Physician Assistant; PCP Registered Nurse
DX: Z20.3 Contact with and (suspected) exposure to rabies (principal); Z29.14 Encounter for prophylactic rabies immune globulin; Z23 Encounter for immunization; S81.852A Open bite, left lower leg, initial encounter; W54.0XXA Bitten by dog, initial encounter; Y99.0 Civilian activity done for income or pay; E11.9 Type 2 diabetes mellitus without complications; I10 Essential (primary) hypertension
CPT/HCPCS: 90375; 90471; 90675; 96372; 99283

== ENCOUNTER 2022-10-22 21:01 | Emergency (ER) | payer OTHER, SELFPAY ==
[2022-10-22] VITALS (14 sets, daily range): BP systolic 145–165; BP diastolic 92–116; PULSE 64–91; RESP 14–25; TEMP 36.7; O2SAT 94–99; BMI 38.0
--- NOTE | 2022-10-22 21:09 | XRR_ITS ---
PROCEDURE INFORMATION: Exam: XR Chest Exam date and time: 10/22/2022 9:35 PM Age: 42 years old Clinical indication: Cough and shortness of breath; Additional info: Cp TECHNIQUE: Imaging protocol: Radiologic exam of the chest. Views: 1 view. COMPARISON: CR XR chest 2V* [id number] 05/07/2020 3:49 PM FINDINGS: Lungs: Unremarkable. No consolidation. Pleural spaces: Unremarkable. No pleural effusion. No pneumothorax. Heart/Mediastinum: Unremarkable. No cardiomegaly. Diaphragm: Mild right hemidiaphragm elevation. Bones/joints: Unremarkable. XR/XR chest 1V portable [id number] IMPRESSION: No acute findings.
--- NOTE | 2022-10-22 21:23 | ECG_ITS ---
[facility] Test Date: 2022-10-22 Pat Name: Keira Cartwright Department: Room: Gender: Female Measurer Machine: : 1980 Requested By: Sangeetha Garcia Order Number: [id number] Jose Maria MD: Satish Burnette M.D. Measurements Intervals [place] Rate: 73 P: 62 NH: 131 QRS: 11 QRSD: 98 T: 55 QT: 387 QTc: 428 Interpretive Statements SINUS RHYTHM POSSIBLE RIGHT VENTRICULAR CONDUCTION DELAY [RSR (QR) IN V1/V2] No previous ECG available for comparison Electronically Signed On 10-23-2022 17:47:25 ESTATE PLANNING COUNSELOR by Satish Burnette M.D. [email or web address]
--- NOTE | 2022-10-22 21:26 | W.ED.CHESTPA ---
HPI - Chest Pain General: Chief Complaint: Chest Pain Stated Complaint: Chest Pains Time Seen by Provider: 10/22/22 21:14 History of Present Illness: Patient comes in with chest pain. Describes it as left-sided, pressure, started about 10 hours ago, constant. Denies any previous history of coronary artery disease, denies smoking, denies any family history of coronary artery disease. Denies any cold symptoms including no cough, congestion, vomiting, diarrhea, or fever. Associated symptoms: Deny abdominal pain, dyspnea, fever(s), nausea, palpitations or vomiting Review of Systems Const: Denies: fever(s) or body aches Eyes: Denies: change in vision or blurry vision ENMT: Denies: throat pain or odynophagia Card: Reports: chest pain; Denies: palpitations Resp: Denies: dyspnea or productive cough GI: Denies: abdominal pain, nausea or vomiting : Denies: flank pain or dysuria Musc: Denies: neck pain or back pain Skin/Breast: Denies: rash or pruritus Neuro: Denies: headache(s) or numbness in extremities Psych: Denies: anxiety or change in appetite Endo: Denies: polyuria or excessive sweating PFSH ED PFSH: Medical History Aftercare following surgery of the genitourinary system Asthma Diabetes HTN (hypertension), benign No pertinent past medical history neghx: thyroid,dvt/pe PCP: Modesta Whipple Surgical History H/O: hysterectomy 08/09/2021: TVH performed by Dr. Enriquez at [facility] Hx of cholecystectomy (~2010) Family History Grandfather Heart disease Paternal Diabetes Paternal Grandmother Heart disease Paternal Diabetes Paternal Family/Other Heart disease Paternal Uncle Colon cancer Maternal Great Grandmother--dx age unknown Paternal Uncle--dx age unknown Diabetes Paternal side in general Hypercholesteremia Paternal side in general Father Diabetes Hypertension Sister Diabetes Denies family history of Ovarian cancer Breast cancer Uterine cancer Thyroid disease Stroke Social History Smoking and tobacco status: never smoked Second hand smoke exposure: No Smoking risk assessment/counseling performed?: No Alcohol intake: current Alcohol intake frequency: holidays/special occasions only Alcohol type: wine Desire information about substance/drug rehabilitation?: No Counseling given: No Adopted: No Caregiver/support person: No Lives independently: Yes Household members: children Housing: House Marital status: Number of children: 1 Highest education level completed: Some College, No Degree service: No Current occupational status: employed History of recent travel: Yes Physical Exam Const: COMMON NORMALS: no acute distress, patient oriented x3, healthy appearing and alert HENMT: COMMON NORMALS: normocephalic and atraumatic HEAD & SCALP: normocephalic and atraumatic Eye: COMMON NORMALS: Equal, round and reactive pupils present and EOMs intact bilaterally PUPIL: Yes Equal, round and reactive pupils present Neck/C-Spine: COMMON NORMALS: full ROM and supple Resp: COMMON NORMALS: normal respiratory effort, No retractions and No use of accessory muscles Cardio: COMMON NORMALS: regular rate and regular rhythm RATE: regular rate RHYTHM: regular rhythm GI: COMMON NORMALS: Normal to inspection, nondistended, normoactive bowel sounds present, Soft to palpation and non-tender PALPATION: Yes Soft to palpation Back/Pelvis: COMMON NORMALS: thoracic and lumbar spine normal to inspection and no thoracic nor lumbar tenderness Extremity: COMMON NORMALS: normal to inspection and full ROM Neuro: COMMON NORMALS: patient oriented x3 SENSORIUM/ORIENTATION: Yes alert Psych: COMMON NORMALS: mental status grossly normal and cooperative Skin: COMMON NORMALS: no rashes or lesions noted and no wounds GENERAL SKIN EXAM: no rashes or lesions noted Course Vital Signs: Vital signs: Vital Signs Temperature 98.1 F 10/22/22 21:06 Pulse Rate 82 10/22/22 21:21 Respiratory Rate 19 H 10/22/22 21:21 Blood Pressure 150/113 10/22/22 21:21 Pulse Oximetry 97 10/22/22 21:21 Oxygen Delivery Me thod 10/22/22 21:21 MDM - Chest Pain Medical Decision Making Patient comes in with chest pain. Describes it as left-sided, pressure, started about 10 hours ago, constant. Denies any previous history of coronary artery disease, denies smoking, denies any family history of coronary artery disease. Denies any cold symptoms including no cough, congestion, vomiting, diarrhea, or fever. Physical exam is unremarkable. Will check x-ray, EKG, and reassess. On reassessment I talked to the patient about the test results. Will encourage her to follow with her primary care physician to discuss a possible outpatient stress test. Will discharge home at this time with precautions to return for worsening or changing symptoms. Lab Data 10/22/22 21:10/22/22 21: Radiology Impressions Chest X-Ray 10/22/22 21: IMPRESSION: No acute findings. Laboratory Results WBC 14.1 10^3/uL (4.0-10.0) H 10/22/22 21: RBC 4.93 10^6/uL (4.1-5.3) 10/22/22: Hgb 13.8 g/dL (11.5-15.3) 10/22/22: Hct 41.9 % (37.0-47.0) 10/22/22: MCV 85.0 fl (81-99) 10/22/22: MCH 28.0 pg (28.0-34.0) 10/22/22 21: MCHC 32.9 g/dL (30.0-36.0) 10/22/22: RDW 12.0 % (12.1-15.1) L 10/22/22 21: Plt Count 426 10^3/cmm (130-400) H 10/22/22: MPV 9.3 fL (7.4-10.4) 10/22/22: Neut % (Auto) 55.7 % 10/22/22 21: Lymph % (Auto) 32.8 % 10/22/22 21: [place] % (Auto) 8.2 % 10/22/22: Eos % (Auto) 2.4 % 10/22/22: Baso % (Auto) 0.4 % 10/22/22: Neut # (Auto) 7.83 10^3/uL (1.8-7.7) H 10/22/22: Lymph # (Auto) 4.6 10^3/uL (0.8-4.8) 10/22/22 21:23 [place] # (Auto) 1.2 10^3/uL (0.2-0.9) H 10/22/22 21:23 Eos # (Auto) 0.3 10^3/uL (0.0-0.8) 10/22/22 21: Baso # (Auto) 0.1 10^3/uL (0.0-0.1) 10/22/22 21: Nucleated RBC % (auto) 0 % 10/22/22 21: Nucleated RBCs # 0.0 /100WBC 10/22/22 21: PT 12.30 SECONDS (12.1-14.9) 10/22/22 21: INR 0.88 (0.8-1.2) 10/22/22 21: Sodium 138 mmol/L (136-145) 10/22/22 21: Potassium 3.4 mmol/L (3.5-5.1) L 10/22/22 21: Chloride 100 mmol/L (98-107) 10/22/22 21: Carbon Dioxide 25 mmol/L (22-29) 10/22/22 21: Anion Gap 16.4 (5-19) 10/22/22 21: BUN 9 mg/dL (6-20) 10/22/22 21: Creatinine 0.7 mg/dL (0.5-0.9) 10/22/22 21: GFR Calculation 92.2 mL/min (90-130) 10/22/22 21: Glucose 135 mg/dL (65-115) H 10/22/22 21: Calculated Osmolality 287 mOsm/kg (285-295) 10/22/22 21: Calcium 9.8 mg/dL (8.5-10.5) 10/22/22 21: Total Bilirubin 0.2 mg/dL (0.15-1.2) 10/22/22 21: AST 17 U/L (0-32) 10/22/22 21: ALT 20 U/L (0-33) 10/22/22 21: Alkaline Phosphatase 95 U/L (35-105) 10/22/22 21: Troponin T Baseline 6 ng/L (0-10) 10/22/22 21: Total Protein 7.7 g/dL (6.6-8.7) 10/22/22 21:23 Albumin 4.5 g/dL (3.5-5.2) 10/22/22 21:23 Globulin 3.2 g/dL (1.3-4.6) 10/22/22 21:23 Discharge Plan Discharge Patient Disposition: Home Clinical Impression: Nonspecific chest pain Condition: Stable Prescriptions: No Action hydroxyzine HCl 25 mg tablet 25 mg PO TID PRN (Reason: Itching) albuterol sulfate 2.5 mg /3 mL (0.083 %) solution for nebulization 2.5 mg INHALATION Q4H PRN (Reason: shortness of breath or wheezing) Qty: 90 0RF valerian root 500 mg capsule 500 mg PO DAILY sertraline [Zoloft] 25 mg tablet 50 mg PO DAILY epinephrine [EpiPen] 0.3 mg/0.3 mL auto-injector 0.3 mg IM ONCE PRN (Reason: Allergic Reaction) Rx Instructions: for 2 doses polyethylene glycol 3350 [Miralax] 17 gram/dose powder 17 g PO .every other day Probiotic Acidophilus 1.5 mg (250 million cell) capsule 100 mmu cells PO BID prenat.vits,ronnie,[id number] Tablet 1 tab PO DAILY gabapentin 300 mg capsule See Rx Instructions .ROUTE .COMPLEX Qty: 30 5RF Dose Instruction: TAKE 1 CAPSULE BY MOUTH DAILY Rx Instructions: TAKE 1 CAPSULE BY MOUTH DAILY albuterol sulfate 90 mcg/actuation aerosol powdr breath activated 2 inh INHALATION Q4H PRN (Reason: shortness of breath or wheezing) Qty: 1 0RF acetaminophen 325 mg capsule 325 mg PO Q4H PRN (Reason: fever or postoperative pain) Qty: 60 0RF ibuprofen 800 mg tablet 800 mg PO TID PRN (Reason: pain) Qty: 60 0RF ferrous sulfate [Iron (ferrous sulfate)] 325 mg (65 mg iron) tablet 325 mg PO BID Qty: 60 0RF hydrocodone-acetaminophen 5-325 mg tablet 1 tab PO Q6H PRN (Reason: pain) Qty: 14 0RF Discharge Orders: Discharge ED (Routine); Ordered 10/22/22 Ordered By: Jose Larry Referrals: Modesta Whipple FNP [Primary Care Provider] - Coding Level of Care Code ED Bereavement Program Coordinator for Chg Fwd Exam Comprehensive
[2022-10-22 21:29] LABS: Basophils # 0.1 10^3/uL (0.0-0.1); Basophils % 0.4 %; Eosinophils # 0.3 10^3/uL (0.0-0.8); Eosinophils % 2.4 %; Hematocrit 41.9 % (37.0-47.0); Hemoglobin 13.8 g/dL (11.5-15.3); Lymphocytes # 4.6 10^3/uL (0.8-4.8); Lymphocytes % 32.8 %; Mean Corpuscular HGB Conc 32.9 g/dL (30.0-36.0); Mean Platelet Volume 9.3 fL (7.4-10.4); Monocytes # 1.2 10^3/uL (0.2-0.9); Monocytes % 8.2 %; Neutrophils # 7.83 10^3/uL (1.8-7.7); Neutrophils % 55.7 %; Nucleated Red Blood Cells % 0 %; Platelet Count 426 10^3/cmm (130-400); Red Blood Count 4.93 10^6/uL (4.1-5.3); White Blood Count 14.1 10^3/uL (4.0-10.0)
[2022-10-22 21:44] LABS: INR 0.88 (0.8-1.2)
[2022-10-22 21:53] LABS: Alanine Aminotransferase 20 U/L (0-33); Albumin Level 4.5 g/dL (3.5-5.2); Alkaline Phosphatase 95 U/L (35-105); Anion Gap 16.4 (5-19); Aspartate Amino Transferase 17 U/L (0-32); Blood Urea Nitrogen 9 mg/dL (6-20); Calcium 9.8 mg/dL (8.5-10.5); Carbon Dioxide 25 mmol/L (22-29); Chloride 100 mmol/L (98-107); Globulin 3.2 g/dL (1.3-4.6); Glomerular Filtration Rate 92.2 mL/min (90-130); Glucose 135 mg/dL (65-115); Osmolality Calculated 287 mOsm/kg (285-295); Potassium 3.4 mmol/L (3.5-5.1); Sodium 138 mmol/L (136-145); Total Bilirubin 0.2 mg/dL (0.15-1.2); Total Protein 7.7 g/dL (6.6-8.7); Troponin(5th) Baseline 6 ng/L (0-10)
--- NOTE | 2022-10-22 22:43 | ED_ITS ---
HPI - Chest Pain General: Chief Complaint: Chest Pain Stated Complaint: Chest Pains Time Seen by Provider: 10/22/22 21:14 History of Present Illness: . PFSH ED PFSH: Medical History Aftercare following surgery of the genitourinary system Asthma Diabetes HTN (hypertension), benign No pertinent past medical history neghx: thyroid,dvt/pe PCP: Modesta Whipple Surgical History H/O: hysterectomy 08/09/2021: TVH performed by Dr. Enriquez at [facility] Hx of cholecystectomy (~2010) Family History Grandfather Heart disease Paternal Diabetes Paternal Grandmother Heart disease Paternal Diabetes Paternal Family/Other Heart disease Paternal Uncle Colon cancer Maternal Great Grandmother--dx age unknown Paternal Uncle--dx age unknown Diabetes Paternal side in general Hypercholesteremia Paternal side in general Father Diabetes Hypertension Sister Diabetes Denies family history of Ovarian cancer Breast cancer Uterine cancer Thyroid disease Stroke Social History Smoking and tobacco status: never smoked Second hand smoke exposure: No Smoking risk assessment/counseling performed?: No Alcohol intake: current Alcohol intake frequency: holidays/special occasions only Alcohol type: wine Desire information about substance/drug rehabilitation?: No Counseling given: No Adopted: No Caregiver/support person: No Lives independently: Yes Household members: children Housing: House Marital status: Number of children: 1 Highest education level completed: Some College, No Degree service: No Current occupational status: employed History of recent travel: Yes Course Vital Signs: Vital signs: Vital Signs Temperature 98.1 F 10/22/22 21:06 Pulse Rate 72 10/23/22 00:43 Respiratory Rate 18 10/23/22 00:43 Blood Pressure 161/90 10/23/22 00:43 Pulse Oximetry 96 10/23/22 00:43 Oxygen Delivery Me thod 10/22/22 22:41 MDM - Chest Pain Medical Decision Making Addendum was done to previous physician as an outpatient discharged Lab Data 10/22/22 21:23 10/22/22 21:23 Radiology Impressions Chest X-Ray 10/22/22 21:09 IMPRESSION: No acute findings. Chest CTA 10/22/22 22:43 IMPRESSION: No evidence of pulmonary embolism. Laboratory Results WBC 14.1 10^3/uL (4.0-10.0) H 10/22/22 21:23 RBC 4.93 10^6/uL (4.1-5.3) 10/22/22 21: Hgb 13.8 g/dL (11.5-15.3) 10/22/22 21: Hct 41.9 % (37.0-47.0) 10/22/22 21: MCV 85.0 fl (81-99) 10/22/22 21: MCH 28.0 pg (28.0-34.0) 10/22/22 21: MCHC 32.9 g/dL (30.0-36.0) 10/22/22 21: RDW 12.0 % (12.1-15.1) L 10/22/22 21: Plt Count 426 10^3/cmm (130-400) H 10/22/22 21:23 MPV 9.3 fL (7.4-10.4) 10/22/22 21: Neut % (Auto) 55.7 % 10/22/22 21: Lymph % (Auto) 32.8 % 10/22/22 21:23 [place] % (Auto) 8.2 % 10/22/22 21: Eos % (Auto) 2.4 % 10/22/22 21: Baso % (Auto) 0.4 % 10/22/22 21:23 Neut # (Auto) 7.83 10^3/uL (1.8-7.7) H 10/22/22 21:23 Lymph # (Auto) 4.6 10^3/uL (0.8-4.8) 10/22/22 21: [place] # (Auto) 1.2 10^3/uL (0.2-0.9) H 10/22/22 21:23 Eos # (Auto) 0.3 10^3/uL (0.0-0.8) 10/22/22 21: Baso # (Auto) 0.1 10^3/uL (0.0-0.1) 10/22/22 21:23 Nucleated RBC % (auto) 0 % 10/22/22 21: Nucleated RBCs # 0.0 /100WBC 10/22/22 21: PT 12.30 SECONDS (12.1-14.9) 10/22/22 21: INR 0.88 (0.8-1.2) 10/22/22 21: Sodium 138 mmol/L (136-145) 10/22/22 21: Potassium 3.4 mmol/L (3.5-5.1) L 10/22/22 21: Chloride 100 mmol/L (98-107) 10/22/22 21: Carbon Dioxide 25 mmol/L (22-29) 10/22/22 21: Anion Gap 16.4 (5-19) 10/22/22 21: BUN 9 mg/dL (6-20) 10/22/22 21: Creatinine 0.7 mg/dL (0.5-0.9) 10/22/22 21: GFR Calculation 92.2 mL/min (90-130) 10/22/22 21: Glucose 135 mg/dL (65-115) H 10/22/22 21: Calculated Osmolality 287 mOsm/kg (285-295) 10/22/22 21: Calcium 9.8 mg/dL (8.5-10.5) 10/22/22 21: Total Bilirubin 0.2 mg/dL (0.15-1.2) 10/22/22 21: AST 17 U/L (0-32) 10/22/22 21: ALT 20 U/L (0-33) 10/22/22 21: Alkaline Phosphatase 95 U/L (35-105) 10/22/22 21: Troponin T Baseline 6 ng/L (0-10) 10/22/22 21: Troponin T 120 Minute 6.00 ng/L (0-10) 10/22/22 23:30 Delta Troponin T 0 ABS# (0-10) 10/22/22 23:30 Total Protein 7.7 g/dL (6.6-8.7) 10/22/22 21: Albumin 4.5 g/dL (3.5-5.2) 10/22/22 21:23 Globulin 3.2 g/dL (1.3-4.6) 10/22/22 21:23 Discharge Plan Discharge Patient Disposition: Home Clinical Impression: Nonspecific chest pain Condition: Stable Prescriptions: No Action hydroxyzine HCl 25 mg tablet 25 mg PO TID PRN (Reason: Itching) albuterol sulfate 2.5 mg /3 mL (0.083 %) solution for nebulization 2.5 mg INHALATION Q4H PRN (Reason: shortness of breath or wheezing) Qty: 90 0RF valerian root 500 mg capsule 500 mg PO DAILY sertraline [Zoloft] 25 mg tablet 50 mg PO DAILY epinephrine [EpiPen] 0.3 mg/0.3 mL auto-injector 0.3 mg IM ONCE PRN (Reason: Allergic Reaction) Rx Instructions: for 2 doses polyethylene glycol 3350 [Miralax] 17 gram/dose powder 17 g PO .every other day Probiotic Acidophilus 1.5 mg (250 million cell) capsule 100 mmu cells PO BID prenat.vits,ronnie,pob-ivyv-anhws Tablet 1 tab PO DAILY gabapentin 300 mg capsule See Rx Instructions .ROUTE .COMPLEX Qty: 30 5RF Dose Instruction: TAKE 1 CAPSULE BY MOUTH DAILY Rx Instructions: TAKE 1 CAPSULE BY MOUTH DAILY albuterol sulfate 90 mcg/actuation aerosol powdr breath activated 2 inh INHALATION Q4H PRN (Reason: shortness of breath or wheezing) Qty: 1 0RF acetaminophen 325 mg capsule 325 mg PO Q4H PRN (Reason: fever or postoperative pain) Qty: 60 0RF ibuprofen 800 mg tablet 800 mg PO TID PRN (Reason: pain) Qty: 60 0RF ferrous sulfate [Iron (ferrous sulfate)] 325 mg (65 mg iron) tablet 325 mg PO BID Qty: 60 0RF hydrocodone-acetaminophen 5-325 mg tablet 1 tab PO Q6H PRN (Reason: pain) Qty: 14 0RF Discharge Orders: Discharge ED (Routine); Ordered 10/23/22 Ordered By: Sangeetha Garcia Referrals: Modesta Whipple FNP [Primary Care Provider] - Discharge Diet: Advance as tolerated Discharge Activity: Resume usual activity Stand Alone Forms: Work/School Release Coding Level of Care Code ED Academic Services Professional for [facility]
--- NOTE | 2022-10-22 22:43 | CTR_ITS ---
PROCEDURE INFORMATION: Exam: CTA Chest With Contrast Exam date and time: 10/22/2022 11:04 PM Age: 42 years old Clinical indication: Shortness of breath; Chest pressure; Prior surgery; Surgery type: Gb; Patient HX: C/O chest pain with SOB. ; Additional info: Concern for pe TECHNIQUE: Imaging protocol: Computed tomographic angiography of the chest with contrast. 3D rendering (Not supervised by radiologist): MIP and/or 3D reconstructed images were created by the technologist. Radiation optimization: All CT scans at this facility use at least one of these dose optimization techniques: automated exposure control; mA and/or kV adjustment per patient size (includes targeted exams where dose is matched to clinical indication); or iterative reconstruction. Contrast material: OMNI 350; Contrast volume: 70 ml; Contrast route: INTRAVENOUS (IV); COMPARISON: CR (CHEST, ) 10/22/2022 9:35 PM RADIATION DOSE METRICS: Total DLP (mGy-cm): 444.88 FINDINGS: Pulmonary arteries: There is no evidence of filling defects within the pulmonary arterial circulation to suggest pulmonary embolism. Aorta: There is no thoracic aortic aneurysm or dissection. Lungs: There is some minimal dependent atelectasis left mid lung. Pleural spaces: Unremarkable. No pneumothorax. No pleural effusion. Heart: Unremarkable. No cardiomegaly. No pericardial effusion. Lymph nodes: There are mildly prominent paratracheal lymph nodes measuring up to 9 x 17 mm and mildly prominent right hilar nodes. Liver: There is a 13 mm sized hypodensity posterior right lobe of the liver not changed compared with CT scan 10/06/2021, likely benign cyst or hemangioma. Bones/joints: Unremarkable. No acute fracture. Soft tissues: Unremarkable. CT/CT angio chest PE protcl [id number] IMPRESSION: No evidence of pulmonary embolism.
[2022-10-22] MEDS: LORazepam 2 mg/mL INJ 1 mL 1 MG IVP (22:48)
--- NOTE | 2022-10-22 23:09 | ECG_ITS ---
[facility] Test Date: 2022-10-22 Pat Name: Keira Cartwright Department: Room: Gender: Female Steeping Press Tender: : 1980 Requested By: Sangeetha Garcia Order Number: [id number] Jose Maria MD: Satish Burnette M.D. Measurements Intervals [place] Rate: 65 P: 64 [place]: 132 QRS: 25 QRSD: 98 T: 34 QT: 418 QTc: 436 Interpretive Statements SINUS RHYTHM POSSIBLE RIGHT VENTRICULAR CONDUCTION DELAY [RSR (QR) IN V1/V2] Compared to ECG 10/22/2022 21:23:02 No significant changes Electronically Signed On 10-23-2022 17:54:58 [employer] by Satish Burnette M.D. [id number]
[2022-10-22] MEDS: iohexol 350 mg/mL 500 mL Btl (per mL) IV (23:17)
[2022-10-23 00:34] LABS: Troponin 5 2HR Delta 0 ABS# (0-10)
[2022-10-23 00:43] VITALS: BP 161/90; PULSE 72; RESP 18; O2SAT 96
== END 2022-10-23 00:43 | disposition home or self-care (01) ==
PROVIDERS: Emergency Provider Emergency Medicine; PCP Registered Nurse
DX: R07.9 Chest pain, unspecified (principal); I10 Essential (primary) hypertension; E11.9 Type 2 diabetes mellitus without complications; J45.909 Unspecified asthma, uncomplicated
CPT/HCPCS: 71045; 71275; 80053; 84484; 85025; 85610; 93005; 96374; 99285; J2060; Q9967

== ENCOUNTER 2022-12-20 16:59 | Emergency (ER) | payer OTHER, SELFPAY ==
[2022-12-20] VITALS (8 sets, daily range): BP systolic 122–155; BP diastolic 94–110; PULSE 90–116; RESP 14–22; TEMP 36.9; O2SAT 95–99
--- NOTE | 2022-12-20 17:39 | ECG_ITS ---
[facility] Test Date: 2022-12-20 Pat Name: Keira Cartwright Department: Room: Gender: Female Abstract Checker: : 1980 Requested By: Kyaw Wilcox Order Number: [id number] Jose Maria MD: Elena Rivera M.D. Measurements Intervals [place] Rate: 101 P: 52 UT: 113 QRS: 5 QRSD: 93 T: 86 QT: 352 QTc: 457 Interpretive Statements SINUS TACHYCARDIA WITH SHORT UT INTERVAL POSSIBLE RIGHT VENTRICULAR CONDUCTION DELAY [RSR (QR) IN V1/V2] LEFT VENTRICULAR HYPERTROPHY AND ST-T CHANGE [VOLTAGE CRITERIA PLUS ST/T ABNORMALITY] Compared to ECG 10/22/2022 23:29:22 Short [place] interval now present Left ventricular hypertrophy now present ST (T wave) deviation now present Sinus rhythm no longer present Electronically Signed On 12-20-2022 20:07:34 CONFERENCE ORGANIZER by Elena Rivera M.D. [id number]
--- NOTE | 2022-12-20 19:15 | XRR_ITS ---
PROCEDURE INFORMATION: Exam: XR Chest Exam date and time: 12/20/2022 8:16 PM Age: 42 years old Clinical indication: Shortness of breath; Additional info: Cp, SOB, today, headache yesterday, n/v, dizzy TECHNIQUE: Imaging protocol: Radiologic exam of the chest. Views: 1 view. COMPARISON: CR XR chest 1V portable [id number] 10/22/2022 9:35 PM FINDINGS: Lungs: Unremarkable. No consolidation. Pleural spaces: Unremarkable. No pleural effusion. No pneumothorax. Heart/Mediastinum: Unremarkable. No cardiomegaly. Bones/joints: Unremarkable. XR/XR chest 1V portable [id number] IMPRESSION: No acute findings.
--- NOTE | 2022-12-20 19:19 | ED_ITS ---
HPI - Chest Pain General: Chief Complaint: Chest Pain Stated Complaint: Cp Time Seen by Provider: 12/20/22 19:10 Source: patient Mode of arrival: ambulatory Limitations: no limitations History of Present Illness: 42-year-old female who states that she has been having some nausea along with a headache and chest pain since yesterday evening. She states she is got a pressure pain in her left lower chest she rates it a 5 out of 10 denies any fevers denies any cough. She states her blood pressures been running high as well she is set up for cardiac stress test next Saturday through her PCP. Associated symptoms: Reports nausea; Deny dyspnea or fever(s) Review of Systems Const: Denies: fever(s), chills, body aches or change in appetite Eyes: Denies: blurry vision or eye discomfort ENMT: Denies: throat pain or dental pain Card: Reports: chest pain Resp: Denies: dyspnea GI: Reports: nausea : Denies: dysuria Musc: Denies: neck pain or back pain Skin/Breast: Denies: rash Neuro: Reports: headache(s) Psych: Denies: depression Nick/Lymph: Denies: easy bruising All/Imm: Denies: urticaria PFSH ED PFSH: Medical History Aftercare following surgery of the genitourinary system Asthma Diabetes HTN (hypertension), benign No pertinent past medical history neghx: thyroid,dvt/pe PCP: Modesta Whipple Surgical History H/O: hysterectomy 08/09/2021: TVH performed by Dr. Enriquez at [facility] Hx of cholecystectomy (~2010) Family History Grandfather Heart disease Paternal Diabetes Paternal Grandmother Heart disease Paternal Diabetes Paternal Family/Other Heart disease Paternal Uncle Colon cancer Maternal Great Grandmother--dx age unknown Paternal Uncle--dx age unknown Diabetes Paternal side in general Hypercholesteremia Paternal side in general Father Diabetes Hypertension Sister Diabetes Denies family history of Ovarian cancer Breast cancer Uterine cancer Thyroid disease Stroke Social History Smoking and tobacco status: never smoked Second hand smoke exposure: No Smoking risk assessment/counseling performed?: No Alcohol intake: current Alcohol intake frequency: holidays/special occasions only Alcohol type: wine Desire information about substance/drug rehabilitation?: No Counseling given: No Adopted: No Caregiver/support person: No Lives independently: Yes Household members: children Housing: House Marital status: Number of children: 1 Highest education level completed: Some College, No Degree service: No Current occupational status: employed History of recent travel: Yes Physical Exam Const: COMMON NORMALS: no acute distress, patient oriented x3 and healthy appearing HENMT: COMMON NORMALS: normocephalic and atraumatic HEAD & SCALP: normocephalic and atraumatic Eye: COMMON NORMALS: Equal, round and reactive pupils present and EOMs intact bilaterally PUPIL: Yes Equal, round and reactive pupils present Neck/C-Spine: COMMON NORMALS: full ROM and supple Chest: COMMONS NORMALS: normal inspection of the chest and normal palpation of entire chest wall Resp: COMMON NORMALS: normal respiratory effort, No retractions, No use of accessory muscles and clear to auscultation bilaterally AUSCULTATION: clear to auscultation bilaterally Cardio: COMMON NORMALS: regular rate, regular rhythm and No murmurs present (Cardio) RATE: regular rate RHYTHM: regular rhythm GI: COMMON NORMALS: Normal to inspection, nondistended, normoactive bowel sounds present, Soft to palpation, non-tender and no masses PALPATION: Yes Soft to palpation Extremity: COMMON NORMALS: normal to inspection and full ROM Neuro: COMMON NORMALS: patient oriented x3, moves all extremities and no focal motor deficits Psych: COMMON NORMALS: mental status grossly normal, Normal thought process present and cooperative THOUGHT PROCESS: Normal thought process present Skin: COMMON NORMALS: no rashes or lesions noted and no wounds GENERAL SKIN EXAM: no rashes or lesions noted Course Vital Signs: Vital signs: Vital Signs Temperature 98.4 F 12/20/22 17:25 Pulse Rate 99 12/20/22 22:01 Respiratory Rate 16 12/20/22 22:01 Blood Pressure 136/97 12/20/22 22:01 Pulse Oximetry 97 12/20/22 22:01 Oxygen Delivery Me thod 12/20/22 18:48 MDM - Chest Pain Medical Decision Making Patient presents here with chest pain along with a headache that is atypical in nature pain here is resolved currently she did have some slight high blood pressures improved as well troponins along with head CT are normal she is to trend her blood pressures follow-up with PCP in a week return if worsening. Lab Data 12/20/22 20:00 12/20/22 20:00 Radiology Impressions Chest X-Ray 12/20/22 19:15 IMPRESSION: No acute findings. Head CT 12/20/22 21:12 IMPRESSION: No acute intracranial abnormality. Laboratory Results WBC 16.6 10^3/uL (4.0-10.0) H 12/20/22 20:00 RBC 5.22 10^6/uL (4.1-5.3) 12/20/22 20:00 Hgb 14.7 g/dL (11.5-15.3) 12/20/22 20:00 Hct 43.8 % (37.0-47.0) 12/20/22 20:00 MCV 83.9 fl (81-99) 12/20/22 20:00 MCH 28.2 pg (28.0-34.0) 12/20/22 20:00 MCHC 33.6 g/dL (30.0-36.0) 12/20/22 20:00 RDW 12.2 % (12.1-15.1) 12/20/22 20:00 Plt Count 453 10^3/cmm (130-400) H 12/20/22 20:00 MPV 9.2 fL (7.4-10.4) 12/20/22 20:00 Neut % (Auto) 65.3 % 12/20/22 20:00 Lymph % (Auto) 24.7 % 12/20/22 20:00 [place] % (Auto) 8.1 % 12/20/22 20:00 Eos % (Auto) 1.0 % 12/20/22 20:00 Baso % (Auto) 0.4 % 12/20/22 20:00 Neut # (Auto) 10.85 10^3/uL (1.8-7.7) H 12/20/22 20:00 Lymph # (Auto) 4.1 10^3/uL (0.8-4.8) 12/20/22 20:00 [place] # (Auto) 1.3 10^3/uL (0.2-0.9) H 12/20/22 20:00 Eos # (Auto) 0.2 10^3/uL (0.0-0.8) 12/20/22 20:00 Baso # (Auto) 0.1 10^3/uL (0.0-0.1) 12/20/22 20:00 Nucleated RBC % (auto) 0 % 12/20/22 20:00 Nucleated RBCs # 0.0 /100WBC 12/20/22 20:00 Sodium 138 mmol/L (136-145) 12/20/22 20:00 Potassium 3.9 mmol/L (3.5-5.1) 12/20/22 20:00 Chloride 97 mmol/L (98-107) L 12/20/22 20:00 Carbon Dioxide 22 mmol/L (22-29) 12/20/22 20:00 Anion Gap 22.9 (5-19) H 12/20/22 20:00 BUN 9 mg/dL (6-20) 12/20/22 20:00 Creatinine 0.6 mg/dL (0.5-0.9) 12/20/22 20:00 GFR Calculation 110.2 mL/min (90-130) 12/20/22 20:00 Glucose 121 mg/dL (65-115) H 12/20/22 20:00 Calculated Osmolality 286 mOsm/kg (285-295) 12/20/22 20:00 Calcium 10.6 mg/dL (8.5-10.5) H 12/20/22 20:00 Total Bilirubin 0.2 mg/dL (0.15-1.2) 12/20/22 20:00 AST 14 U/L (0-32) 12/20/22 20:00 ALT 19 U/L (0-33) 12/20/22 20:00 Alkaline Phosphatase 87 U/L (35-105) 12/20/22 20:00 Troponin T Baseline 6 ng/L (0-10) 12/20/22 20:00 Troponin T 120 Minute 6.00 ng/L (0-10) 12/20/22 21:42 Delta Troponin T 0 ABS# (0-10) 12/20/22 21:42 Total Protein 7.2 g/dL (6.6-8.7) 12/20/22 20:00 Albumin 4.8 g/dL (3.5-5.2) 12/20/22 20:00 Globulin 2.4 g/dL (1.3-4.6) 12/20/22 20:00 Urine Color Colorless (Yellow) 12/20/22 17:46 Urine Appearance Clear (CLEAR) 12/20/22 17:46 Urine pH 5 (5-7) 12/20/22 17:46 Ur Specific [place] 1.020 (1.005-1.030) 12/20/22 17:46 Urine Protein Neg (Negative) 12/20/22 17:46 Urine Glucose (UA) Norm (Normal) 12/20/22 17:46 Urine Ketones Negative (Negative) 12/20/22 17:46 Urine Blood Neg (Negative) 12/20/22 17:46 Urine Nitrate Negative (Negative) 12/20/22 17:46 Urine Bilirubin Neg (Negative) 12/20/22 17:46 Urine Urobilinogen Norm mg/dL (Negative) 12/20/22 17:46 Ur Leukocyte Esterase Negative (Negative) 12/20/22 17:46 EKG Data EKG 1: I personally reviewed and interpreted this EKG as follows: EKG interpretation date: 12/20/22 EKG interpretation time: 17:39 Interpretation: sinus tach hr [address] or t wave abnormalities qrs 93 qtc 410 Discharge Plan Discharge Patient Disposition: Home Clinical Impression: Chest pain, Headache, Hypertension Condition: Stable Prescriptions: No Action hydroxyzine HCl 25 mg tablet 25 mg PO TID PRN (Reason: Itching) albuterol sulfate 2.5 mg /3 mL (0.083 %) solution for nebulization 2.5 mg INHALATION Q4H PRN (Reason: shortness of breath or wheezing) Qty: 90 0RF sertraline [Zoloft] 25 mg tablet 50 mg PO DAILY epinephrine [EpiPen] 0.3 mg/0.3 mL auto-injector 0.3 mg IM ONCE PRN (Reason: Allergic Reaction) Rx Instructions: for 2 doses gabapentin 300 mg capsule See Rx Instructions .ROUTE .COMPLEX Qty: 30 5RF Dose Instruction: TAKE 1 CAPSULE BY MOUTH DAILY Rx Instructions: TAKE 1 CAPSULE BY MOUTH DAILY albuterol sulfate 90 mcg/actuation aerosol powdr breath activated 2 inh INHALATION Q4H PRN (Reason: shortness of breath or wheezing) Qty: 1 0RF acetaminophen 325 mg capsule 325 mg PO Q4H PRN (Reason: fever or postoperative pain) Qty: 60 0RF ibuprofen 800 mg tablet 800 mg PO TID PRN (Reason: pain) Qty: 60 0RF ferrous sulfate [Iron (ferrous sulfate)] 325 mg (65 mg iron) tablet 325 mg PO BID Qty: 60 0RF Discharge Orders: Discharge ED (Routine); Ordered 12/20/22 Ordered By: Sangeetha Garcia Referrals: Modesta Whipple FNP [Primary Care Provider] - 1-3 days Discharge Diet: Advance as tolerated Discharge Activity: Resume usual activity Patient Instructions: Hypertension (ED), General Headache (ED) Coding Level of Care Code ED Adjunct History Instructor for [employer]
[2022-12-20] MEDS: diphenhydrAMINE 50 mg/mL SDV 1mL IVP (20:05)
[2022-12-20] MEDS: metoclopramide 5 mg/mL SDV 2 mL 10 MG IVP (20:06)
[2022-12-20 20:13] LABS: Basophils # 0.1 10^3/uL (0.0-0.1); Basophils % 0.4 %; Eosinophils # 0.2 10^3/uL (0.0-0.8); Hematocrit 43.8 % (37.0-47.0); Hemoglobin 14.7 g/dL (11.5-15.3); Lymphocytes # 4.1 10^3/uL (0.8-4.8); Lymphocytes % 24.7 %; Mean Corpuscular HGB Conc 33.6 g/dL (30.0-36.0); Mean Corpuscular Hemoglobin 28.2 pg (28.0-34.0); Mean Corpuscular Volume 83.9 fl (81-99); Mean Platelet Volume 9.2 fL (7.4-10.4); Monocytes # 1.3 10^3/uL (0.2-0.9); Monocytes % 8.1 %; Neutrophils # 10.85 10^3/uL (1.8-7.7); Neutrophils % 65.3 %; Nucleated Red Blood Cells % 0 %; Platelet Count 453 10^3/cmm (130-400); Red Blood Count 5.22 10^6/uL (4.1-5.3); Red Cell Distribution Width 12.2 % (12.1-15.1); White Blood Count 16.6 10^3/uL (4.0-10.0)
[2022-12-20 20:41] LABS: Add Urine Microscopic? NO; Charge for UA Resulting for Rev
[2022-12-20 20:51] LABS: Urine Appearance Clear (CLEAR); Urine Color Colorless (Yellow); pH Urine 5 (5-7)
[2022-12-20 21:06] LABS: Troponin(5th) Baseline 6 ng/L (0-10)
[2022-12-20 21:07] LABS: Alanine Aminotransferase 19 U/L (0-33); Albumin Level 4.8 g/dL (3.5-5.2); Alkaline Phosphatase 87 U/L (35-105); Anion Gap 22.9 (5-19); Aspartate Amino Transferase 14 U/L (0-32); Blood Urea Nitrogen 9 mg/dL (6-20); Calcium 10.6 mg/dL (8.5-10.5); Carbon Dioxide 22 mmol/L (22-29); Chloride 97 mmol/L (98-107); Globulin 2.4 g/dL (1.3-4.6); Glomerular Filtration Rate 110.2 mL/min (90-130); Glucose 121 mg/dL (65-115); Osmolality Calculated 286 mOsm/kg (285-295); Potassium 3.9 mmol/L (3.5-5.1); Sodium 138 mmol/L (136-145); Total Bilirubin 0.2 mg/dL (0.15-1.2); Total Protein 7.2 g/dL (6.6-8.7)
--- NOTE | 2022-12-20 21:12 | CTR_ITS ---
PROCEDURE INFORMATION: Exam: CT Head Without Contrast Exam date and time: 12/20/2022 10:03 PM Age: 42 years old Clinical indication: Pain; Headache; Patient HX: C/O BARRAGAN with hypertension. TECHNIQUE: Imaging protocol: Computed tomography of the head without contrast. Radiation optimization: All CT scans at this facility use at least one of these dose optimization techniques: automated exposure control; mA and/or kV adjustment per patient size (includes targeted exams where dose is matched to clinical indication); or iterative reconstruction. Other protocol: This patient has received [address] and 0 known cardiac nuclear medicine studies in the 12 months prior to the current study. COMPARISON: No relevant prior studies available. RADIATION DOSE METRICS: Total DLP (mGy-cm): 1045.98 FINDINGS: Brain: Normal. No hemorrhage. Unremarkable white matter. No mass effect. Cerebral ventricles: No ventriculomegaly. Paranasal sinuses: Visualized sinuses are unremarkable. No fluid levels. Mastoid air cells: Visualized mastoid air cells are well aerated. Bones/joints: Unremarkable. No acute fracture. Soft tissues: Unremarkable. CT/CT head wo con* [id number] IMPRESSION: No acute intracranial abnormality.
--- NOTE | 2022-12-20 21:12 | ECG_ITS ---
[facility] Test Date: 2022-12-20 Pat Name: Keira Cartwright Department: Room: Gender: Female Metal Pourer: : 1980 Requested By: Sangeetha Garcia Order Number: [id number] Jose Maria MD: Laureen Nielson M.D. Measurements Intervals [place] Rate: 81 P: 42 [place]: 124 QRS: -9 QRSD: 99 T: 68 QT: 379 QTc: 441 Interpretive Statements SINUS RHYTHM POSSIBLE RIGHT VENTRICULAR CONDUCTION DELAY [RSR (QR) IN V1/V2] LEFT VENTRICULAR HYPERTROPHY AND ST-T CHANGE [VOLTAGE CRITERIA PLUS ST/T ABNORMALITY] POSSIBLE ANTERIOR MYOCARDIAL INFARCTION , PROBABLY OLD Compared to ECG 12/20/2022 17:39:37 Myocardial infarct finding now present Sinus tachycardia no longer present Short [place] interval no longer present ST (T wave) deviation still present Electronically Signed On 12-21-2022 17:05:31 BRASS PICKLER by Laureen Nielson M.D. [id number]
[2022-12-20] MEDS: hyDRALAzine 20 mg/mL INJ 1 mL 10 MG IVP (21:24)
[2022-12-20] MEDS: ondansetron 2 mg/ML SDV 2 mL 4 MG IVP (21:25)
[2022-12-20] MEDS: morphine 4 mg/mL SDV 1 mL IVP (21:26)
[2022-12-20 21:44] LABS: Bilirubin Urine Neg (Negative); Blood Urine Neg (Negative); Glucose Urine UA Norm (Normal); Ketones Urine Negative (Negative); Leukocyte Esterase Urine Negative (Negative); Nitrate Urine Negative (Negative); Protein Urine Neg (Negative); Urobilinogen Urine Norm (Negative)
[2022-12-20] MEDS: ketorolac 30 mg/mL INJ 15 MG IVP (21:58)
[2022-12-20 22:36] LABS: Troponin 5 2HR Delta 0 ABS# (0-10)
== END 2022-12-20 22:46 | disposition home or self-care (01) ==
PROVIDERS: Emergency Provider Emergency Medicine; PCP Registered Nurse
DX: R51.9 Headache, unspecified (principal); I10 Essential (primary) hypertension; R07.9 Chest pain, unspecified
CPT/HCPCS: 70450; 71045; 80053; 81003; 84484; 85025; 93005; 96374; 96375; 99285; J0360; J1200; J1885; J2270; J2405; J2765

== ENCOUNTER 2022-12-25 06:46 | Outpatient (CLI) | payer OTHER, SELFPAY ==
[2022-12-25 07:06] VITALS: BMI 37.1
--- NOTE | 2022-12-25 07:09 | ECG_ITS ---
[facility] Test Date: 2022-12-25 Pat Name: Keira Cartwright Department: Room: Gender: Female Porter Luggage: : 1980 Requested By: Modesta Whipple Order Number: [id number] Jose Maria MD: Satish Burnette M.D. Interpretive Statements NAME OF STUDY: TREADMILL STRESS TEST INDICATION: [Chest Pain, ] EXERCISE DATA: The patient was exercised by Lavelle protocol. Baseline heart rate was 85 beats per minute. Baseline blood pressure was 134/87 millimeters of mercury. Target heart rate was 152 beats per minute. Maximum heart rate achieved was 173, which was 113% of the target heart rate. Maximum blood pressure was 177/90 millimeters of mercury. Total exercise time was 6 minutes 22 seconds. Maximum METs achieved was 10.2. The reason for ending the test was completion of protocol. The patient complained of shortness of breath during the stress test, which then resolved at the end of the test. ELECTROCARDIOGRAM: BASELINE: Showed sinus rhythm, incomplete right bundle branch block no significant ST-T changes at the baseline noted. [] EXERCISE: At the peak exercise level, [] No significant ST-T changes suggestive of ischemia noted. [] RECOVERY: During the recovery period, heart rate dropped appropriately. No significant ST-T changes in the recovery suggestive of ischemia noted. [] CONCLUSION: 1. Exercise capacity good 2. Heart rate response was appropriate 3. Blood pressure response was appropriate 4. Symptoms not suggestive of ischemia. 5. Baseline EKG change of incomplete right bundle branch block reduces sensitivity of the study however no evidence of ischemia seen on this test. Electronically Signed On 01-05-2023 19:08:47 ONLINE MERCHANDISER by Satish Burnette M.D. [id number]
[2022-12-25 07:38] VITALS: BP 156/94; PULSE 99
== END 2022-12-25 06:47 | disposition home or self-care (01) ==
PROVIDERS: PCP Registered Nurse; Visit Provider Registered Nurse
DX: R07.9 Chest pain, unspecified (principal); R06.02 Shortness of breath
CPT/HCPCS: 93017

== ENCOUNTER → 2023-02-13 09:47 | Outpatient (BNVA) | payer OTHER, SELFPAY | PROVIDERS: PCP Family Medicine Adult Medicine; Visit Provider Family Medicine Adult Medicine | DX: E11.9 Type 2 diabetes mellitus without complications (principal); I10 Essential (primary) hypertension | CPT/HCPCS: 80061; 83036; 84443 ==

== ENCOUNTER → 2023-06-14 11:57 | Outpatient (BNVA) | payer SELFPAY | PROVIDERS: PCP Family Medicine Adult Medicine; Visit Provider Family Medicine Adult Medicine | DX: I10 Essential (primary) hypertension (principal); E11.9 Type 2 diabetes mellitus without complications | CPT/HCPCS: 83036; 85025 ==

== ENCOUNTER → 2023-07-29 17:52 | Outpatient (BNVA) | payer OTHER, SELFPAY | PROVIDERS: PCP Family Medicine Adult Medicine; Visit Provider Nurse Practitioner | DX: J02.9 Acute pharyngitis, unspecified (principal) | CPT/HCPCS: 87880 ==

== ENCOUNTER 2025-02-10 09:59 | Outpatient (CLI) | payer SELFPAY ==
--- NOTE | 2025-02-10 10:07 | CT_ITS ---
WS: [id number] CT CALCIUM SCORE REASON FOR VISIT: LEUKOCYTOSIS/TACHYCARDIA/TYPE 2 DIABETES; Coronary artery disease risk assessment COMPARISON: None TECHNIQUE: Noncontrast coronary CT in combination with quantitative analysis performed on a separate workstation were used to determine CACS (Agatston score) TOTAL EXAM DOSE: 79.96 mGy.cm ECG GATING: Prospective SCAN RANGE: Pulmonary artery bifurcation to Inferior aspect of heart COMPLICATIONS: None FINDINGS: Technical Quality/Examination Quality: Good Limitaiton: None OVERALL SCORES Total calcium score: 0 Total volume score: 0 mm3 ARTERY SCORES Left main coronary artery: 0 Left anterior descending artery: 0 Left circumflex artery: 0 Right coronary artery: 0 OTHER FINDINGS: Mediastinum: Normal. Thoracic aorta: Normal. Lungs: Normal. Upper Abdomen: Normal. MINIMAL: 1-10 MILD: 11-100 MODERATE: 101-400 SEVERE:>400 CT/CT heart w calcium score [id number] IMPRESSION: Total calcium score of 0. GRADING OF CORONARY ARTERY DISEASE (BASED ON TOTAL CALCIUM SCORE) NO EVIDENCE OF CAD: 0 calcium score
== END 2025-02-10 10:00 | disposition home or self-care (01) ==
LOC: RAD 10:02
PROVIDERS: PCP Family Medicine; Visit Provider Family Medicine
DX: E11.65 Type 2 diabetes mellitus with hyperglycemia (principal); D72.829 Elevated white blood cell count, unspecified; R00.0 Tachycardia, unspecified
CPT/HCPCS: 75571